=== PATIENT | male | born 1965 | race Caucasian/White ===

== ENCOUNTER 2023-11-20 07:03 | Outpatient (CLI) | payer OTHER, SELFPAY ==
--- OUTSIDE RECORDS SUMMARY | 2023-11-20 07:10 | XMS_ITS | Continuity of Care Document ---
Author Organization [facility] Address [address] [place] [address] Care Team Providers Care Customer Service Technician Name Role Phone Mitch Mason-CTiffany Primary Care Provider Source Comments Patient records contain information from all sites at [facility]. For routine questions regarding patient records, call [phone] during business hours, M-F 8:00 AM - 5:00 PM Central Time. Record requests for emergency care only can be directed to [phone] at any time.[facility] Encounters Date Type Department Care Team Description 10/16/2023 [facility] Only [facility], FreddyA.-C. Diabetes Mellitus Type 2 Without Complication (HCC) 08/24/2023 Refill Department of Family [facility], [facility], in [place], [place] [address] [place] [phone] Mitch Mason PTiffanyA.-C. Med Refill 08/06/2023 Clinical Communication Department of [facility], [facility], in [place], [place] [address] [place] [phone] Mitch Mason P.A.-C. Quality (D5) 08/04/2023 Refill Department of [facility], [facility], in [place], [place] [address] [place] [phone] Mitch Mason P.A.-C. Med Refill 04/23/2023 Orders Only Department of Family [facility], [facility], in [address] [address] Mitch Mason P.A.-C. 04/23/2023 Refill Department of [facility], [facility], in [address] [address] Mitch Mason P.A.-C. Med Refill 04/20/2023 10:50 AM FLOOR MECHANIC - 04/20/2023 11:59 PM FLOOR MECHANIC Hospital Encounter Department of Laboratory Medicine in [address] [address] Mitch Mason P.A.-C. Pain Chest Atypical Discharge Disposition: Home or Self Care 04/20/2023 10:43 AM FLOOR MECHANIC - 04/20/2023 10:49 AM FLOOR MECHANIC Hospital Encounter Department of Radiology in [address] [address] Mitch Mason P.A.-Xochitl Pain Chest Atypical Discharge Disposition: Home or Self Care 04/20/2023 10:30 AM FLOOR MECHANIC Office Visit Department of [facility], [facility], in [address] [address] Mitch Mason P.A.-Sudhakar. Tendonitis Achilles Right (Primary Dx); Body Mass Index 40.0 To 44.9 Adult (HCC); Diabetes Mellitus Type 2 Without Complication (HCC); Pain Chest Atypical 04/20/2023 9:50 AM FLOOR MECHANIC - 04/20/2023 10:42 AM FLOOR MECHANIC Hospital Encounter Department of Laboratory Medicine in [address] [address] Mitch Mason P.A.-CTiffany Diabetes Mellitus Type 2 Without Complication (HCC); Hematuria Discharge Disposition: Home or Self Care 03/13/2023 9:20 AM FLOOR MECHANIC Office Visit Department of Community Internal Medicine in [address] [address] Ericka Hassan P.A.-C. Gout (Primary Dx) 01/05/2023 Clinical Communication Department of Family [facility], [facility], in [address] [address] Mitch Mason P.A.-C. 01/05/2023 12:06 PM CDT - 01/05/2023 11:59 PM CDT Hospital Encounter Department of Laboratory Medicine in [address] [address] Mitch Mason P.A.-C. Diabetes Mellitus Type 2 Without Complication (HCC); Hematuria Discharge Disposition: Home or Self Care 01/05/2023 11:30 AM CDT Office Visit Department of Family Medicine, [facility], in [address] [address] Mitch Mason P.A.-CTiffany Hypertension Essential Primary (Primary Dx); Body Mass Index 40.0 To 44.9 Adult (HCC); Diabetes Mellitus Type 2 Without Complication (HCC); Gastro-Esophageal Reflux Disease With Esophagitis Without Bleeding; Abuse Alcohol; Hematuria 12/29/2022 Refill Department of Family [facility], in [address] [address] Quentin High M.D. Med Refill 12/22/2022 11:02 AM CDT - 12/22/2022 11:59 PM CDT Hospital Encounter Department of Laboratory Medicine in [address] [address] Mitch Mason P.ATiffany-CTiffany Diabetes Mellitus Type 2 Without Complication (HCC); Screening Examination Prostate Cancer Discharge Disposition: Home or Self Care 12/22/2022 11:02 AM CDT - 12/22/2022 11:59 PM CDT Hospital Encounter Department of Laboratory Medicine in [place], [place] [address] [facility] [place] [address] Mitch Mason P.A.-C. Diabetes Mellitus Type 2 Without Complication (HCC); Screening Examination Prostate Cancer Discharge Disposition: Home or Self Care 12/22/2022 Orders Only Department of Family Medicine, [facility], in [place], [place] [address] [facility] [place] [address] Mitch Mason, Hamilton.A.-C. Diabetes Mellitus Type 2 Without Complication (HCC) (Primary Dx); Screening Examination Prostate Cancer 12/03/2022 Refill Department of Family Medicine, [facility], in [place], [place] [address] [facility] [place] [address] Mitch Mason P.ATiffany-C. Med Refill 11/24/2022 [facility] [place], [place] [address] [facility] [place] [address] Mitch Mason P.A.-C. Med Refill 11/24/2022 Clinical Communication Department of Family [facility], [facility], in [place], [place] [address] [facility] [place] [phone] Elsewhere, Pcp Med Refill 11/22/2022 Patient Outreach Department of Family Medicine, [facility], in [place], [place] [address] [place] [phone] Elsewhere, Pcp Diabetes 11/18/2022 Refill Department of Family Medicine, [facility], in [place], [place] [address] [facility] [place] [address] Mitch Mason P.ATiffany-C. Med Refill 11/06/2022 Refill Department of Family Medicine, [facility], in [place], [place] [address] [facility] [place] [address] Mitch Mason P.A.-C. Med Refill 10/20/2022 Clinical Communication Department of [facility], [address] [phone] Tsering Meyers R.N. 10/17/2022 Orders Only [facility] Mason P.A.-C. 10/13/2022 Patient Outreach Department of [facility], [address] [place] [address] Mitch Mason P.A.-C. Diabetes 08/31/2022 Refill Department of [facility], [address] [phone] Mitch Mason P.A.-C. Med Refill 08/31/2022 Clinical Communication Department of [facility], [address] [phone] Tsering Meyers, R.Ryley. Diabetes (D5 - quality) 05/18/2022 Refill Department of [facility], [address] [phone] Mitch Mason P.A.-C. Med Refill 04/01/2022 Refill Department of [facility], [address] [phone] Mitch Mason P.A.-C. Med Refill 02/15/2022 Refill Department of [facility], [address] [phone] Mitch Mason P.A.-C. Med Refill 01/07/2022 Refill Department of [facility], [address] [address] Devonte Larios M.B.B.S., M.D. Med Refill 12/26/2021 Orders Only [facility] P[facility] Mitch Mason P.A.-C. 12/24/2021 Refill Department of Family [facility], [facility], [address] [address] Mitch Mason P.A.-C. Med Refill 08/24/2021 11:00 AM CDT Office Visit Department of [facility], [address] [phone] Mitch Mason P.A.-C. Hypertension Essential Primary (Primary Dx); Body Mass Index 40.0 To 44.9 Adult (HCC); Diabetes Mellitus Type 2 Without Complication (HCC); Gastro-Esophageal Reflux Disease With Esophagitis Without Bleeding; Screening Examination Prostate Cancer 08/23/2021 9:26 AM CDT - 08/23/2021 11:59 PM CDT Hospital Encounter Department of Laboratory Medicine in [address] [address] Mitch Mason P.A.-CTiffany Screening Examination Prostate Cancer; Diabetes Mellitus Type 2 Without Complication (HCC) Discharge Disposition: Home or Self Care 08/23/2021 9:24 AM CDT - 08/23/2021 9:25 AM CDT Hospital Encounter Department of Laboratory Medicine in [address] [address] Mitch Mason P.A.-CTiffany Screening Examination Prostate Cancer; Diabetes Mellitus Type 2 Without Complication (HCC) Discharge Disposition: Home or Self Care 08/17/2021 Orders Only Department of Family Medicine, [facility], in [address] [address] Mitch Mason P.A.-CTiffany Screening Examination Prostate Cancer (Primary Dx); Diabetes Mellitus Type 2 Without Complication (HCC) 2021 Clinical Communication Department of [facility], [address] [phone] Mitch Mason P.A.-C. D5 Quality Improvement 07/12/2021 Orders Only [facility] Mitch Mason P.A.-C. Diabetes Mellitus Type 2 Without Complication (HCC); Monitoring For Therapeutic Drug Therapy 03/07/2021 Orders Only [facility] Mitch Mason P.A.-C. 12/22/2020 Clinical Communication Department of [facility], in [address] [phone] Mitch Mason P.A.-C. Form Review (Work Comp - Aric Oliva) 12/14/2020 Clinical Communication Department of [facility], [address] [phone] Mitch Mason P.A.-C. 11/29/2020 Clinical Communication Department of [facility], in [address] [phone] Mitch Mason P.A.-C. Form Review (Work Comp) 11/25/2020 Clinical Communication Department of Physical Medicine and Rehabilitation in [address] [phone] Hoang Carter D.O. Communication 11/25/2020 2:30 PM CDT Office Visit Department of [facility], in [address] [phone] Mitch Mason P.A.-CTiffany Body Mass Index 40.0 To 44.9 Adult (HCC) (Primary Dx); Diabetes Mellitus Type 2 Without Complication (HCC); Hypertension Essential Primary 10/07/2020 Refill Department of [facility], in [address] [address] Mitch Mason P.A.-C. Med Refill 10/06/2020 Clinical Communication Department of [facility], in [address] [address] Mitch Mason P.A.-Sudhakar. 09/29/2020 Clinical Communication Department of Physical Medicine and Rehabilitation in [address] [address] Hoang Carter D.O. Letter for School/Work 09/28/2020 Clinical Communication Department of Physical Medicine and Rehabilitation in [address] [address] Hoang Carter D.O. Letter regarding limitations at work. 09/27/2020 Clinical Communication Department of Physical Medicine and Rehabilitation in [address] [place] [address] Hoang Carter D.O. 09/23/2020 Clinical Communication Department of [facility], in [address] [address] Mitch Mason P.A.-Sudhakar. 09/15/2020 10:00 AM CDT Office Visit Department of Physical Medicine and Rehabilitation in [address] [address] Hoang Carter D.OTiffany Radiculopathy Lumbosacral (Primary Dx); Pain Low Back; Lumbar Disc Disorder; Spondylosis Lumbar Without Myelopathy 09/09/2020 Refill Department of [facility], in [address] [address] Mitch Mason P.A.-C. Med Refill 08/18/2020 10:30 AM CDT Office Visit Department of Physical Medicine and Rehabilitation in [address] [address] Hoang Carter D.O. Radiculopathy Lumbosacral (Primary Dx); Pain Low Back; Lumbar Disc Disorder; Spondylosis Lumbar Without Myelopathy 08/12/2020 6:47 AM CDT - 08/12/2020 11:59 PM CDT Hospital Encounter Department of Radiology in [place], [place] [address] [place] [address] Hoang Carter D.O. Pain Low Back Discharge Disposition: Home or Self Care 08/11/2020 10:43 AM CDT - 08/11/2020 11:59 PM CDT Hospital Encounter Department of Radiology in [address] [address] Mitch Mason P.A.-CTiffany Pain Back Discharge Disposition: Home or Self Care 08/11/2020 11:45 AM CDT Comprehensive Visit Department of Physical Medicine and Rehabilitation in [address] [address] Hoang Carter D.O. Pain Low Back (Primary Dx); Radiculopathy Lumbar; Spondylosis Lumbar Without Myelopathy 07/28/2020 12:00 PM CDT Office Visit Department of Family Medicine, [facility], in [address] [address] Mitch Mason P.A.-C. Diabetes Mellitus Type 2 Without Complication (HCC) (Primary Dx); Body Mass Index 40.0 To 44.9 Adult (HCC); Hypertension Essential Primary; Gastro-Esophageal Reflux Disease With Esophagitis Without Bleeding; Screening Examination Prostate Cancer; Pain Back 07/22/2020 Refill Department of Family Medicine, [facility], in [address] [address] Mitch Mason P.A.-C. Med Refill 07/22/2020 Clinical Communication Department of [facility], [facility], in [address] [address] Mitch Mason P.A.-C. 07/09/2020 Orders Only [facility] Ozzy Pitts Jr., M.D. 06/30/2020 Clinical Communication Department of [facility], [facility], in [address] [address] Mitch Mason P.A.-C. COVID Inquiry 04/12/2020 Orders Only [facility] Mitch Frost P.A.-C. Monitoring For Therapeutic Drug Therapy; Diabetes Mellitus Type 2 Without Complication (HCC) 03/30/2020 Clinical Communication Department of [facility], in [address] [address] Mitch Mason P.A.-CTiffany D5-Quality Improvement 07/11/2019 9:30 AM CDT Virtual Visit Department of [facility], [address] [address] Mitch Mason P.A.-CTiffany Body Mass Index 40.0 To 44.9 Adult (HCC) (Primary Dx); Hypertension Essential Primary; Diabetes Mellitus Type 2 Without Complication (HCC); Gastroesophageal Reflux Disease With Esophagitis 06/20/2019 7:14 AM CDT - 06/20/2019 11:59 PM CDT Hospital Encounter Department of Laboratory Medicine in [address] [address] Mitch Mason P.A.-CTiffany Diabetes Mellitus Type 2 (HCC); Screening Examination Prostate Cancer Discharge Disposition: Home or Self Care 06/20/2019 7:14 AM CDT - 06/20/2019 11:59 PM CDT Hospital Encounter Department of Laboratory Medicine in [address] [address] Mitch Mason P.A.-CTiffany Diabetes Mellitus Type 2 (HCC); Screening Examination Prostate Cancer Discharge Disposition: Home or Self Care 03/27/2019 Refill Department of [facility], [place], [place] [address] [facility] [address] Mitch Mason P.A.-CTiffany Med Refill; Med Refill 02/26/2019 Clinical Communication Department of General Surgery in [address] [place] [address] Kishore Guadarrama M.D. 02/17/2019 8:15 AM FLOOR MECHANIC Nurse Only Department of [facility], [address] [address] Mitch Mason P.A.-Sudhakar. Elida Gaines, L.P.N. Blood Pressure Check (Blood pressure check- patient states he is feeling better, has been taking his medication as prescribed.) 02/05/2019 Clinical Communication Department of [facility], in [address] [place] [address] Mitch Mason P.ATiffany-CTiffany 02/05/2019 3:30 PM CDT Office Visit Department of Family [facility], [address] [phone] Mitch Mason P.A.-CTiffany Hypertension Essential Primary (Primary Dx); Preoperative Exam; Screening Cancer Colon; Diabetes Mellitus Type 2 (HCC) 01/31/2019 Clinical Communication Department of [facility], [address] [address] Mitch Mason P.A.-CTiffany Rx Prior Authorization (QTY DENIAL OF OMEPRAZOLE 20MG DR OLIVERA) 01/31/2019 Orders Only Pharmacy Prior Auth [phone] Mitch Mason P.A.-C. 01/31/2019 Refill Department of [facility], [facility], [place], [place] [address] [facility] [place] [place] [phone] Mitch Mason P.A.-C. Med Refill 01/27/2019 Clinical Communication Department of [facility], [facility], in [place], [place] [address] [facility] [place] [phone] Mitch Mason P.A.-C. 01/23/2019 3:00 PM CDT Comprehensive Visit Department of Orthopedic Surgery in [place], [place] [address] [address] [address] Luis Mcdonald M.D. Crushing Injury Right Wrist And Hand Initial (Primary Dx); Pain Wrist Right 01/20/2019 Clinical Communication Department of [facility], in [place], [place] [address] [address] Mitch Mason P.A.-C. 01/17/2019 10:56 AM CDT - 01/17/2019 11:59 PM CDT Hospital Encounter Department of Radiology in [address] [place] [address] Mitch Mason P.A.-C. Pain Wrist Right Discharge Disposition: Home or Self Care 01/17/2019 3:00 PM CDT Office Visit Department of [facility], in [place], [place] [address] [facility] [place] [address] Mitch Mason P.A.-C. Pain Wrist Right (Primary Dx); Preoperative Exam; Screening Cancer Colon 01/13/2019 Clinical Communication Department of [facility], in [place], [place] [address] [facility] [place] [address] RoethMitch samson P.A.-C. 12/06/2018 Clinical Communication Department of [facility], [facility], [address] [place] [address] Kishore Guadarrama M.D. Colonoscopy Date 11/29/2018 Clinical Communication Department of [facility], [facility], in [address] [place] [address] Mitch Mason P.A.-C. Colonoscopy 11/27/2018 11:00 AM CDT Office Visit Department of [facility], [address] [place] [address] Mitch Mason P.A.-C. Diabetes Mellitus Type 2 (HCC) (Primary Dx); Hypertension Essential Primary; Screening Cancer Colon; Gastroesophageal Reflux Disease With Esophagitis; Abuse Alcohol; Screening Examination Prostate Cancer 11/14/2018 Clinical Communication Department of [facility], [address] [place] [address] Mitch Mason P.A.-C. 07/26/2018 Clinical Communication Department of [facility], in [address] [address] Mitch Mason P.A.-C. Colonoscopy 06/26/2018 3:34 PM CDT - 06/26/2018 11:59 PM CDT Hospital Encounter Department of Laboratory Medicine in [address] [place] [address] Mitch Mason P.A.-C. Hypertension Essential Primary; Abuse Alcohol; General Medical Examination Adult; Screening Cancer Colon; Iron Deficiency Anemia Screening Exam; Screening Examination Prostate Cancer Discharge Disposition: Home or Self Care 06/26/2018 3:00 PM CDT Office Visit Department of [facility], [address] [address] Mitch Mason P.A.-CTiffany Hypertension Essential Primary (Primary Dx) 06/21/2018 Clinical Communication Department of [facility] in [address] [address] Salas Kelsey C.M.A. 06/12/2018 10:30 AM FLOOR MECHANIC Office Visit Department of Family Medicine, [facility], in [address] [address] Mitch Mason P.A.-C. Cerumen Impacted Bilateral (Primary Dx); Diabetes Mellitus Type 2 (HCC); Body Mass Index 40.0 To 44.9 Adult (HCC); Hypertension Essential Primary; Abuse Alcohol; Gastroesophageal Reflux Disease With Esophagitis; Pain Shoulder Right; General Medical Examination Adult; Screening Cancer Colon; Iron Deficiency Anemia Screening Exam; Screening Examination Prostate Cancer 05/16/2018 8:59 AM FLOOR MECHANIC - 05/16/2018 11:59 PM FLOOR MECHANIC Hospital Encounter Department of Laboratory Medicine in [address] [address] Mitch Mason P.A.-CTiffany Diabetes Mellitus Type 2 Without Complication (HCC) Discharge Disposition: Home or Self Care 05/16/2018 8:59 AM FLOOR MECHANIC - 05/16/2018 11:59 PM FLOOR MECHANIC Hospital Encounter Department of Laboratory Medicine in [address] [address] Mitch Mason P.A.-CTiffany Diabetes Mellitus Type 2 Without Complication (HCC) Discharge Disposition: Home or Self Care 05/03/2018 Clinical Communication Department of Family Medicine, [facility], in [address] [address] Mitch Mason P.A.-Xochitl lab orders 01/23/2018 Orders Only Department of Family Medicine, [facility], in [address] [address] Radha Solis 01/11/2018 Refill Department of Family Medicine, [facility], in [place], [place] [address] [facility] [place] [address] Mitch Mason P.A.-C. Med Refill 08/22/2017 Refill Department of Family Medicine, [facility], in [place], [place] [address] [facility] [place] [address] Mitch Mason P.A.-C. Med Refill 08/10/2017 Refill Department of Family Medicine, [facility], in [place], [place] [address] [facility] [place] [address] Mitch Mason P.A.-C. Med Refill 07/18/2017 Orders Only Department of Family Medicine, [facility], in [address] [place] [address] Mitch Mason P.A.-C. 07/02/2017 Refill Department of Family Medicine, [facility], in [address] [place] [address] Mitch Mason P.A.-CTiffany Med Refill 07/01/2017 Refill Department of Family Medicine, [facility], in [address] [place] [address] Mitch Mason P.A.-C. Med Refill 02/06/2017 Orders Only Department of Family Medicine, [facility], in [address] [place] [address] Mitch Mason P.A.-CTiffany Diabetes Mellitus Type 2 Without Complication (HCC) 01/27/2017 Orders Only Department of Family Medicine, [facility], in [address] [place] [address] Mitch Mason P.A.-CTiffany 01/19/2017 Orders Only Department of Family Medicine, [facility], in [place] [address] [place] [address] Mitch Mason P.A.-C. Diabetes Mellitus Type 2 Without Complication (HCC) 10/16/2016 3:21 PM CDT - 10/16/2016 11:59 PM CDT Hospital Encounter HX [facility] FAMILYMitch Woody P.A.-C. 07/11/2016 9:55 AM CDT - 07/11/2016 11:59 PM CDT Hospital Encounter HX [facility] Mitch Mason P.A.-C. 07/07/2016 11:57 AM CDT - 07/07/2016 11:59 PM CDT Hospital Encounter HX [facility] FAMILYMitch Woody P.A.-C. 07/05/2016 12:50 PM CDT - 07/05/2016 11:59 PM CDT Hospital Encounter HX [facility] Mitch Mason P.A.-C. 06/14/2016 8:07 AM FLOOR MECHANIC - 06/14/2016 11:59 PM FLOOR MECHANIC Hospital Encounter HX [facility] FAMILYMitch Woody P.A.-C. 04/17/2016 [facility] 04/17/2016 2:57 PM FLOOR MECHANIC - 04/17/2016 11:59 PM FLOOR MECHANIC Hospital Encounter HX [facility] Oh Butcher Jr., M.D. 01/07/2016 2:19 PM CDT - 01/07/2016 11:59 PM CDT Hospital Encounter HX [facility] Mitch Mason P.A.-C. 07/23/2015 2:27 PM CDT - 07/23/2015 11:59 PM CDT Hospital Encounter HX [facility] FAMILYMitch Woody P.A.-C. 06/21/2015 8:07 AM CDT - 06/21/2015 11:59 PM CDT Hospital Encounter HX [facility] FAMILYMitch Woody P.A.-C. 06/07/2015 8:30 AM FLOOR MECHANIC - 06/07/2015 11:59 PM FLOOR MECHANIC Hospital Encounter HX [facility] Mitch Mason P.A.-C. 06/07/2015 8:30 AM FLOOR MECHANIC - 06/07/2015 11:59 PM FLOOR MECHANIC Hospital Encounter HX [facility] Mitch Mason P.A.-C. 06/07/2015 8:27 AM FLOOR MECHANIC - 06/07/2015 11:59 PM FLOOR MECHANIC Hospital Encounter HX [facility] Mitch Mason P.A.-C. 12/07/2014 11:39 AM CDT - 12/07/2014 11:59 PM CDT Hospital Encounter HX [facility] FAMILYMitch Woody P.A.-C. 06/29/2014 8:26 AM CDT - 06/29/2014 11:59 PM CDT Hospital Encounter HX [facility] FAMILYMitch Woody P.A.-C. 06/24/2014 8:28 AM CDT - 06/24/2014 11:59 PM CDT Hospital Encounter HX [facility] Mitch Mason P.A.-C. 05/15/2014 Historical [facility] Oh Weber Jr., M.D. 05/15/2014 8:25 AM FLOOR MECHANIC - 05/15/2014 11:59 PM FLOOR MECHANIC Hospital Encounter HX [facility] Oh Butcher Jr., M.D. 04/17/2014 8:39 AM FLOOR MECHANIC - 04/17/2014 11:59 PM FLOOR MECHANIC Hospital Encounter HX [facility] FAMILYMitch Woody P.A.-C. 04/03/2014 8:18 AM FLOOR MECHANIC - 04/03/2014 11:59 PM FLOOR MECHANIC Hospital Encounter HX [facility] ULTRASOUN Mitch Mason P.A.-C. 03/25/2014 1:56 PM FLOOR MECHANIC - 03/25/2014 11:59 PM FLOOR MECHANIC Hospital Encounter HX [facility] FAMILYMitch Woody P.A.-C. 03/21/2014 8:36 AM FLOOR MECHANIC - 03/21/2014 11:59 PM FLOOR MECHANIC Hospital Encounter HX [facility] Mitch Larsen P.A.-C. 03/18/2014 3:15 PM FLOOR MECHANIC - 03/18/2014 11:59 PM FLOOR MECHANIC Hospital Encounter [facility] Mitch Mason P.A.-C. Allergies No known active allergies Medications Medication Sig Dispensed Refills Start Date End Date Status aspirin [address] tablet Take 1 tablet by mouth daily. 12/07/2014 Active blood-glucose meter misc Test as directed for diabetes control. 1 each 10/06/2020 Active blood glucose ctl high,nml,low solution Glucose control solution provides an easy way to ensure accurate blood glucose testing. 1 each 10/06/2020 Active Accu-Chek Guide L1-L2 Ctrl Tory solution See Admin Instructions. Glucose control solution provides an easy way to ensure accurate blood glucose testing. 10/07/2020 Active lancets (Accu-Chek Softclix Lancets) USE 1 TO CHECK GLUCOSE ONCE DAILY 100 each 3 02/16/2022 Active gabapentin (NEURONTIN) 600 mg tablet Take 600 mg by mouth. 11/22/2022 Active tiZANidine (ZANAFLEX) 4 mg tablet Take 4 mg by mouth every 6 (six) hours as needed. 11/22/2022 Active glimepiride (AMARYL) 4 mg tablet Take 1 tablet (4 mg total) by mouth daily. 90 tablet 3 01/05/2023 Active famotidine (PEPCID) 40 mg tablet Take 1 tablet (40 mg total) by mouth 2 (two) times a day. 180 tablet 3 01/05/2023 01/05/2024 Active losartan-hydroCHLOR Othiazide (HYZAAR) 100-25 mg per tablet Take 1 tablet by mouth daily. 90 tablet 3 01/05/2023 Active metFORMIN XR (GLUCOPHAGE-XR) 500 mg 24 hr tablet Take 3 tablets (1,500 mg total) by mouth daily with breakfast. 360 tablet 3 01/05/2023 Active oxyCODONE-acetamino phen (PERCOCET) 5-325 mg per tablet Take 1 tablet by mouth every 6 (six) hours as needed. 03/12/2023 Active naproxen (NAPROSYN) 375 mg tablet Take 1 tablet (375 mg total) by mouth every 12 (twelve) hours as needed for pain. 60 tablet 3 04/20/2023 04/19/2024 Active tirzepatide (Mounjaro) 5 mg/0.5 mL pen injector injection Inject 0.5 mL (5 mg total) under the skin every 7 (seven) days. 6 mL 3 04/23/2023 04/22/2024 Active Accu-Chek Guide test strips USE STRIP TO CHECK GLUCOSE ONCE DAILY 100 each 3 08/06/2023 Active simvastatin (ZOCOR) 20 mg tablet take 1 tablet by mouth at bedtime 90 tablet 08/27/2023 Active Active Problems Problem Noted Date Diagnosed Date Gastro-Esophageal Reflux Dis ease With Esophagitis Without Bleeding 06/12/2018 Body Mass Index 40.0 To 44.9 Adult 06/14/2016 Overview (08/29/2016): Body mass index (BMI) 40.0-44.9, adult Rule activated problem due to BMI 40-44 posted on 06/14 at 08:19 FLOOR MECHANIC. Diabetes Mellitus Type 2 Without Complication Overview (08/29/2016): Diabetes Mellitus Type 2 Abuse Alcohol 03/25/2014 Hypertension Essential Primary 03/18/2014 Overview (08/29/2016): Hypertension (HTN) NOS Resolved Problems Problem Noted Date Diagnosed Date Resolved Date Gastroesophageal Reflux Disease NOS 03/18/2014 06/12/2018 Immunizations Name Administration Dates Next Due Influenza, Unspecified 08/24/2021(Deferred: Paige ent decision) PCV20 08/24/2021 RZV (SHINGRIX) 08/24/2021 SARS-COV-2 (COVID-19) - PFIZ ER TS(Discontinued)(12 years or older) 08/24/2021 Tdap 06/21/2015 Family History Medical History Relation Name Comments Prostate cancer Father Diabetes Mother Hypertension Mother Relation Name Status Comments Father Mother Social History Smoking Status as of 11/20/2023 Tobacco Use Types Packs/Day Years Used Date Smoking Tobacco: Never Assessed Social Connection and Isolat ion Panel [NHANES] Answer Date Recorded Frequency of Communication w ith Friends and Family More than three times a week 01/23/2019 Frequency of Social Gatherin gs with Friends and Family Once a week 01/23/2019 Attends Cheondoism Services Never 01/23 Active Member of Clubs or Organizations No 01/23/2019 Attends Club or Organization Meetings Never 01/23/2019 Marital Status 01/23/2019 AUDIT-C Answer Date Recorded Frequency of Alcohol Consumption Monthly or less 01/23/2019 Average Number of Drinks 7 to 9 019 Frequency of Binge Drinking Monthly 01/07 Overall Financial Resource Strain (CARDIA) Answe r Date Recorded Difficulty of Paying Living Expenses Somewhat lopez [address] 01/23/2019 PHQ-2 Answer Date Recorded PHQ-2 Score 0 08/24/2021 [facility] - Occupational Stress Questionnaire Answer Date Recorded Feeling of Stress To some extent 01/23/2019 Exercise Vital Sign Answer Date Recorde d Days of Exercise per Week 3 days 2018 Minutes of Exercise per Session 20 min 01/23/2019 Hunger Vital Sign Answer Date Recorded Worried About Running Out of Food in the Last Ye ar Often true 01/23/2019 Ran Out of Food in the Last Year Sometimes true 01/23/2019 PRAPARE - Transportation Answer Date Re corded Lack of Transportation (Medical) No 01/23/2019 Lack of Transportation (Non-Medical) No 01/23/2019 Nutrition Answer Date Recorded Nutrition: EVOO Fat Source Unknown 06/08 Nutrition: Servings of Fruits/Vegetables per Day Not on file 06/08/2020 Dental Answer Date Recorded Dental: Regular Dentist Unknown 06/09/19 21 Education Answer Date Recorded What is the highest level of school you have completed or the highest degree you have received? 12th grade 01/23/2019 Sex and Gender Information Value Date Recorded Sex Assigned at Not on file Gender Identity Not on file Sexual Orientation Not on file Last Filed Vital Signs Vital Sign Reading Time Taken Comments Blood Pressure 124/82 04/20/2023 10:18 AM FLOOR MECHANIC av erage Pulse 78 04/20/2023 10:18 AM FLOOR MECHANIC Temperature 36 ??C (96.8 ??F) 04/20/2023 10:18 AM FLOOR MECHANIC Respiratory Rate 16 04/20/2023 10:18 AM FLOOR MECHANIC Oxygen Saturation 97% 02/05/2019 3:27 PM CDT Inhaled Oxygen Concentration - - Weight 143 kg (314 lb 13.1 oz) 04/20/2023 10:18 AM FLOOR MECHANIC Height 184 cm (6' 0.44) 04/20/2023 10:18 AM FLOOR MECHANIC Body Mass Index 42.18 04/20/2023 10:18 AM FLOOR MECHANIC Plan of Treatment Not on file Procedures Procedure Name Priority Date/Time Associated Diagnosis Comments ECG Routine 04/20/2023 10:57 AM FLOOR MECHANIC Pain Chest Atypical DX CHEST AP OR PA AND LATERAL 2 VIEWS RAD - Routine (most inpatients and all outpatients) 04/20/2023 10:51 AM FLOOR MECHANIC Pain Chest Atypical HEMOGLOBIN A1C, B Routine 04/20/2023 10:05 AM FLOOR MECHANIC Diabetes Mellitus Type 2 Without Complication (HCC) Hematuria URINALYSIS WITH MICROSCOPIC IF INDICATED, U Routine 01/05/2023 12:10 PM CDT Diabetes Mellitus Type 2 Without Complication (HCC) Hematuria COMPREHENSIVE METABOLIC PANEL, S/P Routine 12/22/2022 11:08 AM CDT Diabetes Mellitus Type 2 Without Complication (HCC) Screening Examination Prostate Cancer HEMOGLOBIN A1C, B Routine 12/22/2022 11:08 AM CDT Diabetes Mellitus Type 2 Without Complication (HCC) Screening Examination Prostate Cancer PROSTATE-SPECIFIC AG (PSA) DIAGNOSTIC, S Routine 12/22/2022 11:08 AM CDT Diabetes Mellitus Type 2 Without Complication (HCC) Screening Examination Prostate Cancer LIPID PANEL, S Routine 12/22/2022 11:08 AM CDT Diabetes Mellitus Type 2 Without Complication (HCC) Screening Examination Prostate Cancer ALBUMIN, RANDOM, U Routine 12/22/2022 11:05 AM CDT Diabetes Mellitus Type 2 Without Complication (HCC) Screening Examination Prostate Cancer COMPREHENSIVE METABOLIC PANEL, S/P Routine 08/23/2021 9:56 AM CDT Screening Examination Prostate Cancer Diabetes Mellitus Type 2 Without Complication (HCC) LIPID PANEL, S Routine 08/23/2021 9:56 AM CDT Screening Examination Prostate Cancer Diabetes Mellitus Type 2 Without Complication (HCC) HEMOGLOBIN A1C, B Routine 08/23/2021 9:5 6 AM CDT Screening Examination Prostate Cancer Diabetes Mellitus Type 2 Without Complication (HCC) PROSTATE-SPECIFIC AG (PSA) DIAGNOSTIC, S Routine 08/23/2021 9:55 AM CDT Screening Examination Prostate Cancer Diabetes Mellitus Type 2 Without Complication (HCC) ALBUMIN, RANDOM, U Routine 08/23/2021 9: 53 AM CDT Screening Examination Prostate Cancer Diabetes Mellitus Type 2 Without Complication (HCC) MR LUMBAR SPINE WITHOUT IV CONTRAST RAD - Routine (most inpatients and all outpatients) 08/12/2020 7:51 AM CDT Pain Low Back DX LUMBAR SPINE 2-3 VIEWS RAD - Routine (most inpatients and all outpatients) 08/11/2020 11:17 AM CDT Pain Back ALBUMIN, RANDOM, U Routine 07/28/2020 12:57 PM CDT Diabetes Mellitus Type 2 Without Complication (HCC) Screening Examination Prostate Cancer PROSTATE-SPECIFIC AG (PSA) DIAGNOSTIC, S Routine 07/28/2020 12:56 PM CDT Diabetes Mellitus Type 2 Without Complication (HCC) Screening Examination Prostate Cancer LIPID PANEL, S Routine 07/28/2020 12:56 PM CDT Diabetes Mellitus Type 2 Without Complication (HCC) Screening Examination Prostate Cancer HEMOGLOBIN A1C, B Routine 07/28/2020 12:56 PM CDT Diabetes Mellitus Type 2 Without Complication (HCC) Screening Examination Prostate Cancer COMPREHENSIVE METABOLIC PANEL, S/P Routine 07/28/2020 12:56 PM CDT Diabetes Mellitus Type 2 Without Complication (HCC) Screening Examination Prostate Cancer PROSTATE-SPECIFIC AG (PSA) DIAGNOSTIC, S Routine 06/20/2019 7:32 AM CDT Diabetes Mellitus Type 2 (HCC) Screening Examination Prostate Cancer LIPID PANEL, S Routine 06/20/2019 7:32 AM CDT Diabetes Mellitus Type 2 (HCC) Screening Examination Prostate Cancer COMPREHENSIVE METABOLIC PANEL, S/P Routine 06/20/2019 7:32 AM CDT Diabetes Mellitus Type 2 (HCC) Screening Examination Prostate Cancer HEMOGLOBIN A1C, B Routine 06/20/2019 7:3 2 AM CDT Diabetes Mellitus Type 2 (HCC) Screening Examination Prostate Cancer ALBUMIN, RANDOM, U Routine 06/20/2019 7: 30 AM CDT Diabetes Mellitus Type 2 (HCC) Screening Examination Prostate Cancer OUTSIDE PHOTO Routine 02/19/2019 12:00 PM FLOOR MECHANIC DX WRIST RIGHT 2 VIEWS RAD - Routine (most inpatients and all outpatients) 01/17/2019 11:32 AM CDT Pain Wrist Right HEMOGLOBIN A1C, B Routine 11/27/2018 11:28 AM CDT Diabetes Mellitus Type 2 (HCC) PROSTATE-SPECIFIC AG (PSA) DIAGNOSTIC, S Routine 06/26/2018 3:48 PM CDT Screening Examination Prostate Cancer CBC WITH DIFFERENTIAL, B Routine 06/26/2018 3:48 PM CDT Hypertension Essential Primary Abuse Alcohol General Medical Examination Adult Screening Cancer Colon Iron Deficiency Anemia Screening Exam COMPREHENSIVE METABOLIC PANEL, S/P Routine 06/26/2018 3:48 PM CDT Hypertension Essential Primary Abuse Alcohol General Medical Examination Adult Screening Cancer Colon Iron Deficiency Anemia Screening Exam OH RMVL IMPACT CERUMEN IRRIG UNILAT Routine 06/12/2018 10:30 AM FLOOR MECHANIC Cerumen Impacted Bilateral ALBUMIN, RANDOM, U Routine 05/16/2018 9: 11 AM FLOOR MECHANIC Diabetes Mellitus Type 2 Without Complication (HCC) HEMOGLOBIN A1C, B Routine 05/16/2018 9:1 0 AM FLOOR MECHANIC Diabetes Mellitus Type 2 Without Complication (HCC) BASIC METABOLIC PANEL, S/P Routine 05/16/2018 9:10 AM FLOOR MECHANIC Diabetes Mellitus Type 2 Without Complication (HCC) LIPID PANEL, S Routine 05/16/2018 9:10 AM FLOOR MECHANIC Diabetes Mellitus Type 2 Without Complication (HCC) HEMOGLOBIN A1C, B Routine 07/11/2016 10:09 AM CDT LIPID PANEL, S Routine 07/11/2016 10:09 AM CDT COMPREHENSIVE METABOLIC PANEL, S/P Routine 07/05/2016 12:56 PM CDT ALBUMIN, RANDOM, U Routine 01/07/2016 2: 31 PM CDT HEMOGLOBIN A1C, B Routine 01/07/2016 2:2 8 PM CDT HEPATIC FUNCTION PANEL, S Routine 06/07/2015 8:39 AM FLOOR MECHANIC HEMOGLOBIN A1C, B Routine 06/07/2015 8:3 9 AM FLOOR MECHANIC LIPID PANEL, S Routine 06/07/2015 8:39 AM FLOOR MECHANIC COMPREHENSIVE METABOLIC PANEL, S/P Routine 06/07/2015 8:39 AM FLOOR MECHANIC CHRONIC VIRAL HEPATITIS PROFILE Routine 06/07/2015 8:39 AM FLOOR MECHANIC ALBUMIN, RANDOM, U Routine 12/07/2014 1: 10 PM CDT URIC ACID, S/P Routine 12/07/2014 1:05 PM CDT HEMOGLOBIN A1C, B Routine 12/07/2014 1:0 5 PM CDT COMPREHENSIVE METABOLIC PANEL, S/P Routine 12/07/2014 1:05 PM CDT HEPATIC FUNCTION PANEL, S Routine 06/24/2014 8:41 AM CDT LIPID PANEL, S Routine 06/24/2014 8:41 AM CDT HEMOGLOBIN A1C, B Routine 06/24/2014 8:4 1 AM CDT US ABDOMEN COMPLETE Routine 04/03/2014 8 :32 AM FLOOR MECHANIC ALBUMIN, RANDOM, U Routine 03/25/2014 3: 08 PM FLOOR MECHANIC HEMOGLOBIN A1C, B Routine 03/21/2014 9:4 9 AM FLOOR MECHANIC PROSTATE-SPECIFIC AG (PSA) SCRN, S Routine 03/21/2014 9:49 AM FLOOR MECHANIC COMPREHENSIVE METABOLIC PANEL, S/P Routine 03/21/2014 9:49 AM FLOOR MECHANIC LIPID PANEL, S Routine 03/21/2014 9:49 AM FLOOR MECHANIC THYROID FUNCTION CASCADE, S Routine 03/21/2014 9:49 AM FLOOR MECHANIC Results * ECG 12 Lead (04/20/2023 10:57 AM FLOOR MECHANIC) Ventricular Rate ECG/Min 77 BPM MUSE OH Interval 154 ms MUSE QRSD Interval 146 ms MUSE QT Interval 394 ms MUSE QTC Interval 445 ms MUSE P [place] 42 degrees MUSE R [place] 28 degrees MUSE T Wave [place] 17 degrees MUSE 04/20/2023 10:5 7 AM FLOOR MECHANIC 04/20/2023 10:58 AM FLOOR MECHANIC Impressions MUSE - 04/20/2023 10:58 AM FLOOR MECHANIC Normal sinus rhythm Right bundle branch block with secondary ST-T abnormalities No previous ECGs available Reviewed by FRANCES Wilson Narrative Procedure Note Osmany Flores M.D., Ph.D. - 04/20/2023 IMPRESSION: Normal sinus rhythm Right bundle branch block with secondary ST-T abnormalities No previous ECGs available Reviewed by FRANCES Wilson Mitch Mason P.A.-C. ECG ORDERABLES MUSE NA * DX Chest AP or PA and Lateral 2 Views (04/20/2023 10:51 AM FLOOR MECHANIC) Anatomical Region Laterality Modality Chest, Thoracic RST LOS, Tho racic ARZ LOS, Thoracic FLA LOS N/A Digital Radiography Impressions 04/20/2023 10:56 AM FLOOR MECHANIC No evidence of acute cardiopulmonary abnormality. No focal pulmonary consolidation or pleural effusion. Normal heart size. No pneumothorax. Spondylosis. Narrative 04/20/2023 10:56 AM FLOOR MECHANIC EXAM: DX CHEST AP OR PA AND LATERAL 2 VIEWS Procedure Note Lino Mejia M.D. - 04/20/2023 EXAM: DX CHEST AP OR PA AND LATERAL 2 VIEWS IMPRESSION: No evidence of acute cardiopulmonary abnormality. No focal pulmonaryconsolidation or pleural effusion. Normal heart size. No pneumothorax.Spondylosis. Mitch Mason P.A.-C. IMG DIAGNOSTIC IMAGING PROCEDURES * (ABNORMAL) Hemoglobin A1c (04/20/2023 10:05 AM FLOOR MECHANIC) Only the most recent of13 resultswithin the time period is included. Hemoglobin A1c, B 8.1(H) 4.2 - 5.6 % 04/20/2023 12:13 PM FLOOR MECHANIC OWAT Comment: Hemoglobin A1c values greater than or equal to 6.5 percent are diagnostic for diabetes mellitus. ??Diagnosis should be confirmed by repeat testing. ??In diabetic patients, HbA1c goals should be discussed with healthcare provider. Blood (Blood, Venous) 04/20/2023 10:05 AM FLOOR MECHANIC 04/20/2023 11:06 AM FLOOR MECHANIC Mitch Mason P.A.-C. LAB BLOOD ADD- ON [facility] [address] [place] [address], [place] OWAT [facility] [place] [address] [place] [address] * (ABNORMAL) Urinalysis with Microscopic if Indicated (01/05/2023 12:10 PM CDT) Source Urine, Urine, Midstream 01/05/2023 12:37 PM CDT FB60 Clarity Clear Clear 01/05/2023 12:40 PM CDT FB60 Color Yellow 01/05/2023 12:40 PM CDT FB60 Comment: ----REFERENCE VALUE---- Colorless Yellow Clari Blood Negative Negative 01/05/2023 12:40 PM CDT FB60 Nitrite Negative Negative 01/05/2023 12:40 PM CDT FB60 Leukocyte Esterase Negative Negative 01/05/2023 12:40 PM CDT FB60 Protein Negative mg/dL 01/05/2023 12:40 PM CDT FB60 Comment: ----REFERENCE VALUE---- Negative Trace Glucose 500(A) Negative mg/dL 01/05/2023 12:40 PM CDT FB60 Ketones, QI(U) Negative Negative mg/dL 01/05/2023 12:40 PM CDT FB60 Bilirubin Negative Negative 01/05/2023 12:40 PM CDT FB60 pH 5.5 5.0 - 8.0 01/05/2023 12:40 PM CDT FB60 Specific [place] 1.025 1.001 - 1.035 01/05/2023 12:40 PM CDT FB60 Urobilinogen 1.0 0.2 - 1.0 mg/dL 01/05/2023 12:40 PM CDT FB60 Urine (Urine, Midstream) 01/05/2023 12:10 PM CDT 01/05/2023 12:37 PM CDT Mitch Mason P.A.-C. LAB URINE VLADISLAV FRE[facility] Organization Address City/State/ZIP Co de Phone Number [facility] [address] [place] [address], [facility] FB60 [facility] [place] [address] [place] [address] * (ABNORMAL) Lipid Panel (12/22/2022 11:08 AM CDT) Only the most recent of9 resultswithin the time period is included. Triglycerides 320(H) mg/dL 12/22/2022 2:43 PM CDT OWAT Comment: ----REFERENCE VALUE---- Normal: <150 mg/dL Borderline High: 150-199 mg/dL High: 200-499 mg/dL Very High: > or =500 mg/dL Cholesterol, Total 146 mg/dL 2022 2:43 PM CDT OWAT Comment: ----REFERENCE VALUE---- Desirable: < 200 mg/dL Borderline High: 200 - 239 mg/dL High: > or = 240 mg/dL Cholesterol, LDL, Calculated 64 mg/dL 12/22/2022 2:43 PM CDT OWAT Comment: ----REFERENCE VALUE---- Desirable: <100 mg/dL Above Desirable: 100-129 mg/dL Borderline High: 130-159 mg/dL High: 160-189 mg/dL Very High: >=190 mg/dL ----ADDITIONAL INFORMATION---- LDL cholesterol calculated using the Briones/NIH equation. Cholesterol, HDL 32(L) >=40 mg/dL 12/23/19 2:43 PM CDT OWAT Cholesterol, Non-HDL, Calculated 114 mg/dL 12/22/2022 2:43 PM CDT OWAT Comment: ----REFERENCE VALUE---- Desirable: <130 mg/dL Above Desirable: 130-159 mg/dL Borderline High: 160-189 mg/dL High: 190-219 mg/dL Very High: > or =220 mg/dL Fasting (8 HR or more) No 12/22/2022 1:44 PM CDT OWAT Blood (Blood, Venous) 12/22/2022 11:08 AM CDT 12/22/2022 1:44 PM CDT Mitch Mason P.A.-C. LAB BLOOD ADD- ON [facility] [address] [place] [address], [place] OW[facility] [place] [address] [place] [address] * PSA (Prostate-Specific Antigen), Diagnostic (12/22/2022 11:08 AM CDT) Only the most recent of5 resultswithin the time period is included. Pathologist [facility] [place] Prostate-Specific Ag 1.2 <=3.5 ng/mL 12/22/2022 2:39 PM CDT OWAT Comment: ----ADDITIONAL INFORMATION---- The testing method is an electrochemiluminescence assay manufactured by [employer] and performed on the Modular or Jody system. Values obtained with different assay methods or kits may be different and cannot be used interchangeably. Test results cannot be interpreted as absolute evidence for the presence or absence of malignant disease. Blood (Blood, Venous) 12/22/2022 11:08 AM CDT 12/22/2022 1:45 PM CDT Mitch Mason P.A.-C. LAB BLOOD ADD- ON [facility] [address] [place] [address], [facility] OWAT [facility] [place] [address], [place] [address] * (ABNORMAL) Comprehensive Metabolic Panel (12/22/2022 11:08 AM CDT) Only the most recent of9 resultswithin the time period is included. Pathologist [facility] [place] Potassium, P 4.1 3.6 - 5.2 mmol/L 12/22/2022 2:43 PM CDT OWAT Sodium, P 136 135 - 145 mmol/L 12/22/2022 2:43 PM CDT OWAT Chloride, P 101 98 - 107 mmol/L 12/22/2022 2:43 PM CDT OWAT Bicarbonate, P 22 22 - 29 mmol/L 12/22/2022 2:43 PM CDT OWAT Anion Gap, P 13 7 - 15 12/22/2022 2:43 PM CDT OWAT BUN (Blood Urea Nitrogen), P 20 8 - 24 mg/dL 12/22/2022 2:43 PM CDT OWAT Creatinine 1.40(H) 0.74 - 1.35 mg/dL 12/22/2022 2:43 PM CDT OWAT Estimated GFR (eGFR) 59(L) >=60 mL/min/BS A 12/22/2022 2:43 PM CDT OWAT Comment: Estimated GFR calculated using the 2020 CKD_EPI creatinine equation. Calcium, Total, P 9.3 8.6 - 10.0 mg/dL 12/22/2022 2:43 PM CDT OWAT Glucose, P 206(H) 70 - 140 mg/dL 12/22/2022 2:43 PM CDT OWAT Protein, Total, P 7.4 6.3 - 7.9 g/dL 12/22/2022 2:43 PM CDT OWAT Albumin, P 4.3 3.5 - 5.0 g/dL 12/22/2022 2:43 PM CDT OWAT Aspartate Aminotransferase (AST), P 46 8 - 48 U/L 12/22/2022 2:43 PM CDT OWAT Alkaline Phosphatase, P 114 40 - 129 U/L 12/22/2022 2:43 PM CDT OWAT Alanine Aminotransferase (ALT), P 62(H) 7 - 55 U/L 12/22/2022 2:43 PM CDT OWAT Bilirubin, Total, P 0.4 <=1.2 mg/dL 12/22/2022 2:43 PM CDT OWAT Blood (Blood, Venous) 12/22/2022 11:08 AM CDT 12/22/2022 1:44 PM CDT Mitch Mason P.A.-C. LAB BLOOD ADD- ON [facility] [address] [place] [address], [facility] OWAT [facility] [place] [address] [place] [address] * Albumin, Random, Urine (12/22/2022 11:05 AM CDT) Only the most recent of8 resultswithin the time period is included. Microalbumin <12.0 mg/L 12/22/2022 2:35 PM CDT OWAT Comment:If clinically indica luis, contact the lab for additional testing. Creatinine 150 mg/dL 12/22/2022 2:35 PM CDT OWAT Albumin/Creatinine Ratio <8 <17 mg/g 12/22/2022 2:35 PM CDT OWAT Comment: This ratio may not correspond with the reference range because one or both of the values used to calculate the ratio was above or below the quantification limits. Urine (Urine, Voided) 12/22/2022 11:05 AM CDT 12/22/2022 1:42 PM CDT Mitch Mason P.A.-C. LAB URINE LUZE TNAI [facility] [address] [place] [address], [facility] OWAT [facility] [place] [address] [place] [address] * MR Lumbar Spine without IV Contrast (08/12/2020 7:51 AM CDT) Anatomical Region Laterality Modality Lumbar Spine, Neuroradiology RST LOS, Neuroradiology ARZ LOS, Neuroradiology FLA LOS N/A Magnetic Resonance 08/12/2020 8:35 AM CDT Impressions 08/12/2020 8:41 AM CDT 1. ??Lumbar spondylosis. 2. ??Lower lumbar facet degeneration. 3. ??At L5-S1, small right central disc protrusion and annular fissure contact but do not impinge the traversing right S1 nerve root. 4. ??No neural impingement. Narrative 08/12/2020 8:41 AM CDT EXAM: ??MR LUMBAR SPINE WITHOUT IV CONTRAST COMPARISON: ??Radiographs 08/11/20 FINDINGS: There are 5 lumbar-type vertebra. There is multilevel small disc endplate spurring. Multilevel facet hypertrophy/degeneration, most advanced at bilateral L4-5 and bilateral L5-S1. Additional level by level change is detailed below: T12-L1: No stenosis. L1-2: ??No stenosis. L2-3: ??No stenosis. L3-4: ??No stenosis. L4-5: ??Mild generalized disc bulge. Advanced bilateral facet hypertrophy/degeneration. Mild bilateral neural foraminal stenoses. L5-S1: Disc desiccation. Small right central disc protrusion and annular fissure contact but do not impinge the traversing right S1 nerve root in the lateral recess (series 3 image 8). No central canal stenosis. Advanced bilateral facet hypertrophy/degeneration. Mild bilateral neural foraminal stenoses. No levels of neural impingement or central canal stenosis. Alignment: ??Normal Bone Marrow: ??Normal Conus: ??Normal termination Extra-spinal Findings: ??Bilateral small renal cysts. Procedure Note Luis Adan M.D. - 08/12/2020 EXAM: MR LUMBAR SPINE WITHOUT IV CONTRAST COMPARISON: Radiographs 08/11/20 FINDINGS: There are 5 lumbar-type vertebra. There is multilevel smalldisc endplate spurring. Multilevel facet hypertrophy/degeneration, mostadvanced at bilateral L4-5 and bilateral L5-S1. Additional level by level change isdetailed below: T12-L1: No stenosis. L1-2: No stenosis. L2-3: No stenosis. L3-4: No stenosis. L4-5: Mild generalized disc bulge. Advanced bilateral facet hypertrophy/degeneration. Mild bilateral neural foraminal stenoses. L5-S1: Disc desiccation. Small right central disc protrusion and annularfissure contact but do not impinge the traversing right S1 nerve root in thelateral recess (series 3 image 8). No central canal stenosis. Advanced bilateralfacet hypertrophy/degeneration. Mild bilateral neural foraminal stenoses. No levels of neural impingement or central canal stenosis. Alignment: Normal Bone Marrow: Normal Conus: Normal termination Extra-spinal Findings: Bilateral small renal cysts. IMPRESSION: 1. Lumbar spondylosis. 2. Lower lumbar facet degeneration. 3. At L5-S1, small right central disc protrusion and annular fissurecontact but do not impinge the traversing right S1 nerve root. 4. No neural impingement. Hoang RBADEN MRI PROCEDURES * DX Lumbar Spine 2-3 Views (08/11/2020 11:17 AM CDT) Anatomical Region Laterality Modality Lumbar Spine, Musculoskeleta l RST LOS, Neuroradiology ARZ LOS, Muskuloskeletal FLA LOS N/A Digital Radiography 08/11/2020 11:2 1 AM CDT Impressions 08/11/2020 11:21 AM CDT Minimal retrolisthesis of L2 on L3. Mild multilevel disc space narrowing. Moderate facet arthropathy at the lumbosacral junction. Mild degenerative change at the sacroiliac joints. Presumed calcified 5 mm stone lower pole left kidney. Narrative 08/11/2020 11:21 AM CDT EXAM: DX LUMBAR SPINE 2-3 VIEWS Procedure Note Gabino Rivers M.D. - 08/11/2020 EXAM: DX LUMBAR SPINE 2-3 VIEWS IMPRESSION: Minimal retrolisthesis of L2 on L3. Mild multilevel disc space narrowing. Moderate facet arthropathy at the lumbosacral junction. Mild degenerative change at the sacroiliac joints. Presumed calcified 5 mmstone lower pole left kidney. Mitch Mason P.A.-C. IMG DIAGNOSTIC IMAGING PROCEDURES * Unspecified-Outside Photo (02/19/2019 12:00 PM FLOOR MECHANIC) Narrative IIMS - 02/27/2019 6:40 AM FLOOR MECHANIC This order has been created and auto-finalized to support the import of outside images. If available, original interpretation can be found on the Media Tab in Chart Review, in Document Viewer, or as an image in QREADS. If a re-interpretation or overread is required please follow defined workflow. ?? Provider Not In System IMG NON RAD IMAGI NG PROCEDURES IIMS NA * DX Wrist Right 2 Views (01/17/2019 11:32 AM CDT) Anatomical Region Laterality Modality Upper Extremity, Wrist, Musc uloskeletal RST LOS, Musculoskeletal ARZ LOS, Muskuloskeletal FLA LOS Right Digit al Radiography 01/17/2019 11:5 7 AM CDT Impressions 01/17/2019 11:59 AM CDT Impression: Subacute/probable chronic appearing osteocartilaginous loose bodies (likely posttraumatic); located along the ulnar-sided margin of the right ulnar carpal joint line, may be related to subacute/remote trauma. Could result in possible adjacent soft tissue injury and/or tendinopathy. Moderately prominent soft tissue swelling along the peripheral margin of the right distal forearm/wrist, more pronounced dorsally and ulnar sided aspect of the distal right forearm and wrist. Narrative 01/17/2019 11:59 AM CDT EXAM: DX WRIST RIGHT 2 VIEWS COMPARISON: None Procedure Note Hoang Dickinson M.D. - 01/17/2019 EXAM: DX WRIST RIGHT 2 VIEWS COMPARISON: None IMPRESSION: Impression: Subacute/probable chronic appearing osteocartilaginous loosebodies (likely posttraumatic); located along the ulnar-sided margin of the rightulnar carpal joint line, may be related to subacute/remote trauma. Could resultin possible adjacent soft tissue injury and/or tendinopathy. Moderately prominent soft tissue swelling along the peripheral margin ofthe right distal forearm/wrist, more pronounced dorsally and ulnar sidedaspect of the distal right forearm and wrist. Mitch Mason P.A.-C. IMG DIAGNOSTIC IMAGING PROCEDURES * (ABNORMAL) CBC with Differential, Blood (06/26/2018 3:48 PM CDT) Hemoglobin 16.0 13.2 - 16.6 g/dL 06/26/2018 3:57 PM CDT [facility] Hematocrit 46.2 38.3 - 48.6 % 06/26/2018 3:57 PM CDT [facility] Erythrocytes 5.26 4.35 - 5.65 x10(12)/L 06/26/2018 3:57 PM CDT [facility] MCV 87.8 78.2 - 97.9 fL 06/26/2018 3:57 PM CDT [facility] RBC Distrib Width 13.0 11.8 - 14.5 % 06/26/2018 3:57 PM CDT [facility] Platelet Count 265 135 - 317 x10(9)/L 06/26/2018 3:57 PM CDT [facility] Leukocytes 9.4 3.4 - 9.6 x10(9)/L 06/26/2018 3:57 PM CDT [facility] Neutrophils 3.90 1.56 - 6.45 x10(9)/L 06/26/2018 3:57 PM CDT [facility] Lymphocytes 4.25(H) 0.95 - 3.07 x10(9)/L 06/26/2018 3:57 PM CDT [facility] Monocytes 0.98(H) 0.26 - 0.81 x10(9)/L 06/26/2018 3:57 PM CDT [facility] Eosinophils 0.20 0.03 - 0.48 x10(9)/L 06/26/2018 3:57 PM CDT [facility] Basophils 0.03 0.01 - 0.08 x10(9)/L 06/26/2018 3:57 PM CDT [facility] Blood (Blood, Venous) 06/26/2018 3:48 PM CDT 06/26/2018 3:48 PM CDT Mitch Mason P.A.-C. LAB BLOOD ADD- ON Performing Organization Address City/State/[facility] Co de Phone Number [facility] [address] * [place] RMVL IMPACT CERUMEN IRRIG UNILAT (06/12/2018 10:30 AM FLOOR MECHANIC) Narrative MMODAL - 06/12/2018 10:30 AM FLOOR MECHANIC Mike Ellison, R.N. ? 06/12/2018 12:38 PM Ear cerumen removal Date/Time: 06/12/2018 12:36 PM Performed by: MIKE ELLISON Authorized by: TRACY URBAN Pre-procedural details: ??Indication: cerumen impaction ?? Procedure details: ??Location: ??Left ear and right ear ??Procedure type: irrigation ?Microscope used: no ?? Post-procedure details: ??Inspection: ??Complete impaction removal and TM intact ??Hearing quality: ??Improved ??Procedure completed successfully: yes ?Complications: no immediate complications ?? Tracy Urban APRN, C.N.P., R.N. PROCED URE/MINOR SURGICAL ORDERABLES MMODAL NA * (ABNORMAL) BMP (Basic Metabolic Panel) (05/16/2018 9:10 AM FLOOR MECHANIC) Potassium, S 4.7 3.6 - 5.2 mmol/L 05/16/2018 11:16 AM [facility] Sodium, S 140 135 - 145 mmol/L 05/16/2018 11:16 AM [facility] Chloride, S 103 98 - 107 mmol/L 05/16/2018 11:16 AM [facility] Bicarbonate, S 29 22 - 29 mmol/L 05/16/2018 11:16 AM [facility] Anion Gap 8 7 - 15 05/16/2018 11:16 AM [facility] BUN (Blood Urea Nitrogen), S 14 8 - 24 mg/dL 05/16/2018 11:16 AM [facility] Creatinine 1.05 0.74 - 1.35 mg/dL 05/16/2018 11:16 AM [facility] eGFR-Non Black/ 82 >=60 mL/min/BSA 05/16/2018 11:16 AM [facility] Comment: ----ADDITIONAL INFORMATION---- Estimated GFR calculated using the 2009 CKD_EPI creatinine equation. eGFR-Black/Afri can Portuguese >90 >=60 mL/min/BSA 05/16/2018 11:16 AM [facility] Comment: ----ADDITIONAL INFORMATION---- Estimated GFR calculated using the 2009 CKD_EPI creatinine equation. Calcium, Total, S 9.1 8.6 - 10.0 mg/dL 05/16/2018 11:16 AM [facility] Glucose, S 142(H) 70 - 140 mg/dL 05/16/2018 11:16 AM FLOOR MECHANIC [facility] Blood 05/16/2018 9:10 AM FLOOR MECHANIC 05/16/2018 10:39 AM FLOOR MECHANIC Mitch Mason P.A.-C. LAB BLOOD ADD- ON Performing Organization Address City/[facility] Co de Phone Number [facility] [address] [place], [place] [address] * (ABNORMAL) Hepatic Function Panel (06/07/2015 8:39 AM FLOOR MECHANIC) Only the most recent of2 resultswithin the time period is included. Alanine Amniotransferase, LD 78(H) 7 - 55 UNITL POWERCHART Albumin, S 4.6 3.2 - 5.2 GDL POWERCHART Alkaline Phosphatase, S 101 45 - 115 UNITL POWERCHART Aspartate Aminotransferase (AST), S 38 8 - 48 UNITL POWERCHART Bilirubin, Direct, S <0.20 <=0.30 MGDL POWERCHART Bilirubin, Total, S 0.4 0.1 - 1.0 MGDL POWERCHART Total Protein, S 7.4 6.3 - 7.9 GDL POWERCHART Blood 06/07/2015 8:39 AM FLOOR MECHANIC Mitch Mason P.A.-C. LAB BLOOD ADD- ON Performing Organization Address City/[facility] Co de Phone Number POWERCHART * Chronic Hepatitis Profile (06/07/2015 8:39 AM FLOOR MECHANIC) HBs Antigen, S Negative Negative POWERCHART HBs Antibody, S Negative POWERCHART Comment: Patient is presumed to be not immune to infection with HBV. REFERENCE VALUE Unvaccinated: Negative Vaccinated: Positive HX Hep Bs Ab [facility] <5.0 MIUML POWERCHART Comment: REFERENCE VALUE Unvaccinated: <5.0 Vaccinated: >=12.0 HBc Total Ab, S Negative Negative POWERCHART HXHCV Ab [facility] Negative Negative POWERCHART Comment: Iztjpm-hk-lmedfy ratio is <1.00. Test Performed by: [place] [address] [employer] Sales Representative: Hari Sheppard II, M.D., Ph.D. Blood 06/07/2015 8:39 AM FLOOR MECHANIC Mitch Mason P.A.-C. LAB MICROBIOLO GY - BLOOD ORDERABLES Performing Organization Address City/[facility] Co de Phone Number POWERCHART * (ABNORMAL) Uric Acid (12/07/2014 1:05 PM CDT) Uric Acid, S 10.3(H) 3.7 - 8.0 MGDL POWERCHART Blood 12/07/2014 1:05 PM CDT Mitch Mason P.A.-C. LAB BLOOD ADD- ON Performing Organization Address City/State/[facility] Co de Phone Number POWERCHART * US Abdomen Complete (04/03/2014 8:32 AM FLOOR MECHANIC) Anatomical Region Laterality Modality Abdomen N/A Ultrasound 04/03/2014 8:32 AM FLOOR MECHANIC Addenda Addendum by Zheng Duong M.D. on 04/03/2014 8:32 AM FLOOR MECHANIC RAD^^^OW US Abdomen Complete 04/03/2014 08:32:22 Addendum by Zheng Duong M.D. on 04/03/2014 8:30 AM FLOOR MECHANIC RAD^^^OW US Abdomen Complete 04/03/2014 08:30:00 Addendum by Zheng Duong M.D. on 04/03/2014 8:32 AM FLOOR MECHANIC RAD^^^MA US Abdomen Complete 04/03/2014 08:32:22 Addendum by Zheng Duong M.D. on 04/03/2014 8:30 AM FLOOR MECHANIC RAD^^^MA US Abdomen Complete 04/03/2014 08:30:00 Impressions 04/03/2014 10:35 AM FLOOR MECHANIC Diffuse hepatic steatosis with an apparent large 6 cm geographic area of fatty sparing in the posterior left lobe. If clinical concern for other liver disease remains high, multiphasic CT or MRI could be considered. Narrative 04/03/2014 10:35 AM FLOOR MECHANIC HISTORY: Abnormally elevated liver function tests. Technique: Transabdominal grayscale and Doppler ultrasound (US) imaging was performed. COMPARISON: None. FINDINGS: The liver is not enlarged but displays abnormally increased echogenicity throughout, (other than the posterior left lobe), without definite US evidence of a concerning focal lesion (allowing for poor acoustic penetration due to the diffuse fatty infiltration). No biliary dilatation is observed as the maximum diameter of the common bile duct is 3 mm. The gallbladder images normally without evidence of wall thickening, sludge, or gallstones. Negative Gamboa's. No ascites. The visualized portions of the pancreas are negative. The kidneys are normal in size with a right renal length of 13.2 cm and a left renal length of 12.9 cm. Cortical thickness / echogenicity appear to be preserved for age 48. There is no US evidence of a renal mass, calculus, or hydronephrosis. No limited Doppler abnormalities are identified. The abdominal aorta is not dilated. The IVC and main portal vein are patent with correct directionality. The spleen is normal in appearance and size, length of 11 cm. Procedure Note Alvin Johns M.D. / Zheng Duong M.D. - 08/19/2016 HISTORY: Abnormally elevated liver function tests. Technique: Transabdominal grayscale and Doppler ultrasound (US) imaging was performed. COMPARISON: None. FINDINGS: The liver is not enlarged but displays abnormally increased echogenicity throughout, (other than the posterior left lobe), without definite US evidence of a concerning focal lesion (allowing for poor acoustic penetration due to the diffuse fatty infiltration). No biliary dilatation is observed as the maximum diameter of the common bile duct is 3 mm. The gallbladder images normally without evidence of wall thickening, sludge, or gallstones. Negative Gamboa's. No ascites. The visualized portions of the pancreas are negative. The kidneys are normal in size with a right renal length of 13.2 cm and a left renal length of 12.9 cm. Cortical thickness / echogenicity appear to be preserved for age 48. There is no US evidence of a renal mass, calculus, or hydronephrosis. No limited Doppler abnormalities are identified. The abdominal aorta is not dilated. The IVC and main portal vein are patent with correct directionality. The spleen is normal in appearance and size, length of 11 cm. IMPRESSION: Diffuse hepatic steatosis with an apparent large 6 cm geographic area of fatty sparing in the posterior left lobe. If clinical concern for other liver disease remains high, multiphasic CT or MRI could be considered. Lloyd Coleman Jr., R.D.M.S. IMG US PROCEDURES * Thyroid Function Deuel (03/21/2014 9:49 AM FLOOR MECHANIC) TSH, Sensitive 2.4 0.3 - 5.0 MIUL POWERCHART Comment: Test Performed by: [place] [address] [employer] Sales Representative: Michael Rivers M.D. Blood 03/21/2014 9:49 AM FLOOR MECHANIC Mitch Mason P.A.-C. LAB BLOOD ADD- ON Performing Organization Address City/[facility] Co de Phone Number POWERCHART * PSA (Prostate-Specific Antigen) Screen (03/21/2014 9:49 AM FLOOR MECHANIC) Prostate-Specif ic Ag 1.13 0.00 - 2.50 NGML POWERCHART Blood 03/21/2014 9:49 AM FLOOR MECHANIC Mitch Mason P.A.-C. LAB BLOOD ADD- ON Performing Organization Address City/State/[facility] Co de Phone Number POWERCHART Visit Diagnoses Diagnosis Start Date Diabetes Mellitus Type 2 Without Complication (HCC) 01/19/2017 Diabetes Mellitus Type 2 Without Complication (HCC) 02/06/2017 Diabetes Mellitus Type 2 Without Complication (HCC) 05/16/2018 Diabetes Mellitus Type 2 Without Complication (HCC) 05/16/2018 Diabetes Mellitus Type 2 (HCC) 06/12/2018 ZZ Body Mass Index 40.0 To 44.9 Adult (HCC) 06/12/2018 Hypertension Essential Primary 06/12/2018 Abuse Alcohol 06/12/2018 Gastroesophageal Reflux Disease With Esophagitis 06/12/2018 Pain Shoulder Right 06/12/2018 General Medical Examination Adult 06/12/2018 Screening Cancer Colon 06/12/2018 Iron Deficiency Anemia Screening Exam 06/12/2018 Screening Examination Prostate Cancer 06/12/2018 Cerumen Impacted Bilateral 06/12/2018 Hypertension Essential Primary 06/26/2018 Abuse Alcohol 06/26/2018 General Medical Examination Adult 06/26/2018 Screening Cancer Colon 06/26/2018 Iron Deficiency Anemia Screening Exam 06/26/2018 Screening Examination Prostate Cancer 06/26/2018 Hypertension Essential Primary 06/26/2018 Diabetes Mellitus Type 2 (HCC) 11/27/2018 Hypertension Essential Primary 11/27/2018 Screening Cancer Colon 11/27/2018 Gastroesophageal Reflux Disease With Esophagitis 11/27/2018 Abuse Alcohol 11/27/2018 Screening Examination Prostate Cancer 11/27/2018 Pain Wrist Right 01/17/2019 Pain Wrist Right 01/17/2019 Preoperative Exam 01/17/2019 Screening Cancer Colon 01/17/2019 Pain Wrist Right 01/23/2019 Crushing Injury Right Wrist And Hand Initial 01/23/2019 Hypertension Essential Primary 02/05/2019 Preoperative Exam 02/05/2019 Screening Cancer Colon 02/05/2019 Diabetes Mellitus Type 2 (HCC) 02/05/2019 Hypertension Essential Primary 02/17/2019 Diabetes Mellitus Type 2 (HCC) 06/20/2019 Screening Examination Prostate Cancer 06/20/2019 Diabetes Mellitus Type 2 (HCC) 06/20/2019 Screening Examination Prostate Cancer 06/20/2019 ZZ Body Mass Index 40.0 To 44.9 Adult (HCC) 07/11/2019 Hypertension Essential Primary 07/11/2019 Diabetes Mellitus Type 2 Without Complication (HCC) 07/11/2019 Gastroesophageal Reflux Disease With Esophagitis 07/11/2019 Monitoring For Therapeutic Drug Therapy 04/12/2020 Diabetes Mellitus Type 2 Without Complication (HCC) 04/12/2020 Diabetes Mellitus Type 2 Without Complication (HCC) 07/28/2020 ZZ Body Mass Index 40.0 To 44.9 Adult (HCC) 07/28/2020 Hypertension Essential Primary 07/28/2020 Gastro-Esophageal Reflux Disease With Esophagitis Without Bleeding 07/28/2020 Screening Examination Prostate Cancer 07/28/2020 Pain Back 07/28/2020 Pain Back 08/11/2020 Pain Low Back Unspecified 08/11/2020 Radiculopathy Lumbar 08/11/2020 Spondylosis Lumbar Without Myelopathy 08/11/2020 Pain Low Back Unspecified 08/12/2020 Radiculopathy Lumbosacral 08/18/2020 Pain Low Back Unspecified 08/18/2020 Lumbar Disc Disorder 08/18/2020 Spondylosis Lumbar Without Myelopathy 08/18/2020 Radiculopathy Lumbosacral 09/15/2020 Pain Low Back Unspecified 09/15/2020 Lumbar Disc Disorder 09/15/2020 Spondylosis Lumbar Without Myelopathy 09/15/2020 ZZ Body Mass Index 40.0 To 44.9 Adult (HCC) 11/25/2020 Diabetes Mellitus Type 2 Without Complication (HCC) 11/25/2020 Hypertension Essential Primary 11/25/2020 Diabetes Mellitus Type 2 Without Complication (HCC) 07/12/2021 Monitoring For Therapeutic Drug Therapy 07/12/2021 Diabetes Mellitus Type 2 Without Complication (HCC) 2021 Screening Examination Prostate Cancer 08/17/2021 Diabetes Mellitus Type 2 Without Complication (HCC) 08/17/2021 Screening Examination Prostate Cancer 08/23/2021 Diabetes Mellitus Type 2 Without Complication (HCC) 08/23/2021 Screening Examination Prostate Cancer 08/23/2021 Diabetes Mellitus Type 2 Without Complication (HCC) 08/23/2021 ZZ Body Mass Index 40.0 To 44.9 Adult (HCC) 08/24/2021 Diabetes Mellitus Type 2 Without Complication (HCC) 08/24/2021 Hypertension Essential Primary 08/24/2021 Gastro-Esophageal Reflux Disease With Esophagitis Without Bleeding 08/24/2021 Screening Examination Prostate Cancer 08/24/2021 Screening Test Laboratory 08/31/2022 Diabetes Mellitus Type 2 Without Complication (HCC) 08/31/2022 Hypertension Essential Primary 08/31/2022 Diabetes Mellitus Type 2 Without Complication (HCC) 12/22/2022 Screening Examination Prostate Cancer 12/22/2022 Diabetes Mellitus Type 2 Without Complication (HCC) 12/22/2022 Screening Examination Prostate Cancer 12/22/2022 Diabetes Mellitus Type 2 Without Complication (HCC) 12/22/2022 Screening Examination Prostate Cancer 12/22/2022 Diabetes Mellitus Type 2 Without Complication (HCC) 01/05/2023 Hematuria 01/05/2023 ZZ Body Mass Index 40.0 To 44.9 Adult (HCC) 01/05/2023 Diabetes Mellitus Type 2 Without Complication (HCC) 01/05/2023 Hypertension Essential Primary 01/05/2023 Gastro-Esophageal Reflux Disease With Esophagitis Without Bleeding 01/05/2023 Abuse Alcohol 01/05/2023 Hematuria 01/05/2023 Gout 03/13/2023 Pain Chest Atypical 04/20/2023 Pain Chest Atypical 04/20/2023 ZZ Body Mass Index 40.0 To 44.9 Adult (HCC) 04/20/2023 Diabetes Mellitus Type 2 Without Complication (HCC) 04/20/2023 Tendinitis Achilles Right 04/20/2023 Pain Chest Atypical 04/20/2023 Diabetes Mellitus Type 2 Without Complication (HCC) 04/20/2023 Hematuria 04/20/2023 Diabetes Mellitus Type 2 Without Complication (HCC) 10/16/2023 Care Teams Customer Service Technician Relationship Specialty Start Date End Date Mitch Mason P.A.-C. [address] [place] [phone] PCP - General Family Medicine 12/22/22
--- OUTSIDE RECORDS SUMMARY | 2023-11-20 07:11 | XMS_ITS | Encounter Summary ---
Author Organization [facility] Address [address] [place] [address] Care Team Providers Care On Line Csr Name Role Phone Mitch Mason P.A.-C. Primary Care Provider Encounter Details Date Type Department Care Team (Late st Contact Info) Description 10/16/2023 Orders Only [facility]NT Mitch Mason, P.A.-C. [address] [facility] [place] [phone] Diabetes Mellitus Type 2 Without Complication (HCC) Social History Tobacco Use Types Packs/Day Years Used Date Smoking Tobacco: Former Cigarettes Q uit: 04/09/1996 Smokeless Tobacco: Never Alcohol Use Standard Drinks/Week Comments Yes 1 (1 standard drink = 0.6 oz pur e alcohol) Social Connection and Isolat ion Panel [NHANES] Answer Date Recorded Frequency of Communication w ith Friends and Family More than three times a week 01/23/2019 Frequency of Social Gatherin gs with Friends and Family Once a week 01/23/2019 Attends Nondenominational Services Never 01/23 Active Member of Clubs [...] Answer Date Recorded PHQ-2 Score 0 08/24/2021 [facility] of Occupat ional Health - Occupational Stress [...] on file Sexual Orientation Not on file documented as of this encounter Plan of Treatment Scheduled Orders Name Type Priority Associated Diagnoses Orde r Schedule Albumin, Random, Urine Lab Routine Diabetes Mellitus Type 2 Without Complication (HCC) Expected: 10/30/2023, Expires: 04/13/2024 documented as of this encounter Visit Diagnoses Diagnosis Diabetes Mellitus Type 2 Without Complication (HCC) documented in this encounter Care Teams On Line Csr Relationship Specialty Start Date End Date Mitch Mason P.A.-C. [address] [place] [phone] PCP - General Family Medicine 12/22/22 documented as of this encounter
--- OUTSIDE RECORDS SUMMARY | 2023-11-20 07:11 | XMS_ITS | Referral Summary ---
Author Organization [facility] Address [address] [place] [address] Care Team Providers Care Informatics Analyst Name Role Phone Mitch Mason.A.-C. Primary Care Provider Source Comments Patient records contain information from all sites at [facility]. For routine questions regarding patient records, call [phone] during business hours, M-F 8:00 AM - 5:00 PM Central Time. Record requests for emergency care only can be directed to [phone] at any time.[facility] Encounters Date Type Department Care Team Description 10/16/2023 Orders Only [facility] PCP TH AZT Mitch Mason, P.A.-C. Diabetes Mellitus Type 2 Without Complication (HCC) 08/24/2023 Refill Department of Family Medicine, [facility], in [place], [place] [address] [place] [phone] Mitch Mason, P.A.-C. Med Refill from Last 3 Months Allergies No known active allergies Medications Medication [...] BMI 40-44 posted on 06/14 at 08:19 CALCIMINER. Diabetes Mellitus Type 2 Without Complication Overview [...] TS(Discontinued)(12 years or older) 08/24/2021 Tdap 06/21/2015 Social History Tobacco Use Types Packs/Day Years Used Date Smoking Tobacco: Former Cigarettes Q uit: 04/09/1996 Smokeless Tobacco: Never Tobacco Cessation:Counseling Given: Not Answered Alcohol Use Standard Drinks/Week Comments Yes 1 (1 standard drink = 0.6 oz pur e alcohol) Social Connection and Isolat ion Panel [NHANES] Answer Date Recorded Frequency of Communication w ith Friends and Family More than three times a week 01/23/2019 Frequency of Social Gatherin gs with Friends and Family Once a week 01/23/2019 Attends Congregation Services Never 01/23 Active Member of Clubs [...] Answer Date Recorded PHQ-2 Score 0 08/24/2021 [facility] of Occupat ional Health - Occupational Stress [...] Comments Blood Pressure 124/82 04/20/2023 10:18 AM CALCIMINER av erage Pulse 78 04/20/2023 10:18 AM CALCIMINER Temperature 36 ??C (96.8 ??F) 04/20/2023 10:18 AM CALCIMINER Respiratory Rate 16 04/20/2023 10:18 AM CALCIMINER Oxygen Saturation 97% 02/05/2019 3:27 PM CDT Inhaled Oxygen Concentration - - Weight 143 kg (314 lb 13.1 oz) 04/20/2023 10:18 AM CALCIMINER Height 184 cm (6' 0.44) 04/20/2023 10:18 AM CALCIMINER Body Mass Index 42.18 04/20/2023 10:18 AM CALCIMINER Plan of Treatment Not on file Procedures Procedure Name Priority Date/Time Associated Diagnosis Comments HEMOGLOBIN A1C, B Routine 04/20/2023 10: 05 AM CALCIMINER Diabetes Mellitus Type 2 Without Complication (HCC) Hematuria LIPID PANEL, S Routine 12/22/2022 11:08 AM CDT Diabetes Mellitus Type 2 Without Complication (HCC) Screening Examination Prostate Cancer COMPREHENSIVE METABOLIC PANEL, S/P Routine 12/22/2022 11:08 AM CDT Diabetes Mellitus Type 2 Without Complication (HCC) Screening Examination Prostate Cancer ALBUMIN, RANDOM, U Routine 12/22/2022 11 :05 AM CDT Diabetes Mellitus Type 2 Without Complication (HCC) Screening Examination Prostate Cancer CHRONIC VIRAL HEPATITIS PROFILE Routine 06/07/2015 8:39 AM CALCIMINER from Last 3 Months or Most Recently Relevant to Health Maintenance Results * (ABNORMAL) Hemoglobin A1c (04/20/2023 10:05 AM CALCIMINER) Hemoglobin A1c, B 8.1(H) 4.2 - 5.6 % 04/20/2023 12:13 PM CALCIMINER OWAT Comment: Hemoglobin A1c values greater than or equal to 6.5 percent are diagnostic for diabetes mellitus. ??Diagnosis should be confirmed by repeat testing. ??In diabetic patients, HbA1c goals should be discussed with healthcare provider. Blood (Blood, Venous) 04/20/2023 10:05 AM CALCIMINER 04/20/2023 11:06 AM CALCIMINER Mitch Mason P.A.-C. LAB BLOOD ADD- ON [facility] [address] [place] [address], [facility] in [place] [address], [place] [address] * (ABNORMAL) Lipid Panel (12/22/2022 11:08 AM CDT) Triglycerides 320(H) mg/dL 12/22/2022 2:43 PM CDT [...] Mitch Mason P.A.-C. LAB BLOOD ADD- ON [facility] [address] [place] [address], [facility] in [place] [address] [place] [address] * (ABNORMAL) Comprehensive Metabolic Panel (12/22/2022 11:08 AM CDT) Potassium, P 4.1 3.6 - 5.2 mmol/L [...] Mitch Mason P.A.-C. LAB BLOOD ADD- ON [facility] [address] [place] [address], [place] OW[place] [facility] in [place] [address] [place] [address] * Albumin, Random, Urine (12/22/2022 11:05 AM CDT) Microalbumin <12.0 mg/L 12/22/2022 2:35 PM CDT [...] Mitch Mason P.A.-C. LAB URINE VLADISLAV FREIRE [facility] Organization Address City/State/ZIP Co de Phone Number [facility] [address] [place] [address], [facility] in [place] [address] [place] [address] * Chronic Hepatitis Profile (06/07/2015 8:39 AM CALCIMINER) HBs Antigen, S Negative Negative POWERCHART HBs Antibody, S Negative POWERCHART Comment: Patient is presumed to be not immune to infection with HBV. REFERENCE VALUE Unvaccinated: Negative Vaccinated: Positive HX Hep Bs Ab [facility] <5.0 MIUML POWERCHART Comment: REFERENCE VALUE Unvaccinated: <5.0 Vaccinated: >=12.0 HBc Total Ab, S Negative Negative POWERCHART HXHCV Ab [facility] Negative Negative POWERCHART Comment: Xxuvlo-nv-ditsed ratio is <1.00. Test Performed by: [facility] - [address] [address] Chair Post Machine Operator: Hari Sheppard II, M.D., Ph.D. Blood 06/07/2015 8:39 AM CALCIMINER Mitch Mason P.A.-C. LAB MICROBIOLO GY - BLOOD ORDERABLES POWERCHART from Last 3 Months or Most Recently Relevant to Health Maintenance Care Teams Informatics Analyst Relationship Specialty Start Date End Date Mitch Mason P.A.-C. [address] [place] [phone] PCP - General Family Medicine 12/22/22
--- OUTSIDE RECORDS SUMMARY | 2023-11-20 07:11 | XMS_ITS | Encounter Summary ---
Author Organization [facility] Address [address] [place] [address] Care Team Providers Care White Kid Buffer Name Role Phone Mitch Mason P.A.-C. Primary Care Provider Reason for Visit * Reason Comments Med Refill Encounter Details Date Type Department Care Team (Late st Contact Info) Description 08/24/2023 Refill Department of Family Medicine, [facility], in [place], [place] [address] [place] [address] Mitch Mason, PTiffanyATiffany-C. [address] [place] [phone] Med Refill Social History Tobacco Use Types Packs/Day Years [...] and Family Once a week 01/23/2019 Attends [employer] Services Never 01/23 Active Member of Clubs [...] Answer Date Recorded PHQ-2 Score 0 08/24/2021 [facility] of Occupat ional Health - Occupational Stress [...] as of this encounter Plan of Treatment Not on file documented as of this encounter Visit Diagnoses Not on filedocumented in this encounter Care Teams White Kid Buffer Relationship Specialty Start Date End Date Mitch Mason, Gurmeet. [address] [place] [address] [place] [phone] PCP - General Family Medicine 12/22/22 documented as of this encounter
--- OUTSIDE RECORDS SUMMARY | 2023-11-20 07:11 | XMS_ITS | Encounter Summary ---
Author Organization [facility] Address [address] [place] [address] Care Team Providers Care Senior Systems Software Engineer Name Role Phone Mitch Mason P.A.-C. Primary Care Provider Encounter Details Date Type Department Care Team (Late st Contact Info) Description 05/15/2014 Historical Ophthalmology [facility] Oh Rashid Jr., M.D. [address] [place] [phone] Social History Tobacco Use Types Packs/Day Years Used Date Smoking Tobacco: Never Assessed Sex and Gender Information Value Date Recorded Sex Assigned at Not on file Gender Identity Not on file Sexual Orientation Not on file documented as of this encounter Progress Notes * Oh Rashid M.D. - 05/15/2014 8:32 AM CST Eye General CHIEF COMPLAINT Complete Exam - New pt HISTORY OF PRESENT ILLNESS New pt here to [facility] care. Is a new diabetic and here for a dilated exam. His glasses are about 2 years old, but it not having any problems with them. ROS good general health- heart and lungs WNL IMPRESSION / REPORT / PLAN A) DM, refractive error P) New MR, rto 1 year CDM Reports - EYEGEN Id: [id number] Status: Fnl documented in this encounter Plan of Treatment Not on file documented as of this encounter Visit Diagnoses Not on filedocumented in this encounter Care Teams Senior Systems Software Engineer Relationship Specialty Start Date End Date Mitch Mason P.A.-C. [address] [phone] PCP - General Family Medicine 12/22/22 documented as of this encounter
--- OUTSIDE RECORDS SUMMARY | 2023-11-20 07:11 | XMS_ITS | Encounter Summary ---
Author Organization [facility] Address [address] [place] [address] Care Team Providers Care Spanish Literature Professor Name Role Phone Mitch Mason P.A.-C. Primary Care Provider Reason for Visit * Reason Onset Date Comments Quality 08/06/2023 D5 Encounter Details Date Type Department Care Team (Late st Contact Info) Description 08/06/2023 Clinical Communication Department of Family Medicine, [facility], in [place], [place] [address] [place] [address] Mitch Mason PBrandon-CTiffany [address] [place] [address] Quality (D5) Social History Tobacco Use Types Packs/Day Years [...] and Family Once a week 01/23/2019 Attends [employer] Services Never 01/23 Active Member of Clubs [...] Answer Date Recorded PHQ-2 Score 0 08/24/2021 [facility] of Occupat ional Health - Occupational [...] on file documented as of this encounter Miscellaneous Notes * Telephone Encounter - Tsering Meyers R.N. - 08/06/2023 11:49 AM CDT Left message for patient to return call to clinic. Does the patient need to speak to nursing? no Action needed: Patient is due for labs and diabetic follow up appointment with PCP. Please assist in scheduling - labs should be done a few days before appt w/ PCP. documented in this encounter Plan of Treatment Not on file documented as of this encounter Visit Diagnoses Not on filedocumented in this encounter Care Teams Spanish Literature Professor Relationship Specialty Start Date End Date Mitch Mason P.A.-C. NPI: [id number] [place] [address] [place] [phone] PCP - General Family Medicine 12/22/22 documented as of this encounter
--- OUTSIDE RECORDS SUMMARY | 2023-11-20 07:11 | XMS_ITS | Clinical Summary ---
Author Organization [facility] Address [place], [place] [address] Care Team Providers Care Chief Service Dispatcher Name Role Phone Pcp, No Primary Care Provider Unavailabl e Allergies No known active allergies Medications Medication Sig Dispensed Refills Start Date End Date Status atenolol (TENORMIN) 50 mg tablet Take 50 mg by mouth once daily. Active aspirin (ECOTRIN) 81 mg enteric coated tablet Take 1 Tab by mouth once daily. 12/07/2014 Active metFORMIN (GLUCOPHAGE XR) 500 mg Extended-Release tablet Take 4 tablets by mouth once daily with a meal. 3 11/22/2018 Active simvastatin (ZOCOR) 20 mg tablet Take 20 mg by mouth once daily. 06/12/2018 Active glimepiride (AMARYL) 4 mg tablet Take 4 mg by mouth once daily with a meal. 07/23/2020 Active losartan (COZAAR) 100 mg tablet Take 100 mg by mouth once daily. 07/23/2020 Active hydroCHLOROthiazide (HCTZ) 25 mg tablet Take 25 mg by mouth once daily. 07/23/2020 Active famotidine (PEPCID) 40 mg tablet Take 40 mg by mouth once daily. 07/23/2020 Active Accu-Chek Guide test strips strip USE TO TEST ONCE DAILY 07/23/2021 Active losartan-hydrochlor othiazide (HYZAAR) 100-25 mg tablet Take 1 Tablet by mouth once daily. 08/24/2021 Active gabapentin (NEURONTIN) 600 mg tabletIndications:L umbosacral radiculopathy at S1 Take 1 Tablet (600 mg) by mouth three times daily. 90 Tablet 5 11/22/2022 Active tiZANidine (ZANAFLEX) 4 mg tabletIndications:L umbosacral radiculopathy at S1 Take 1 Tablet (4 mg) by mouth every 6 hours if needed for Muscle Spasm. 36 Tablet 2 11/22/2022 Active ibuprofen (ADVIL; MOTRIN) 600 mg tabletIndications:I ntractable right heel pain Take 1 Tablet (600 mg) by mouth every 6 hours if needed for Pain. Maximum of 3200 mg in 24 hours. 30 Tablet 02/05/2023 Active oxyCODONE-acetamino phen (PERCOCET) 5-325 mg per tabletIndications:R ight foot pain Take 1 Tablet by mouth every 6 hours if needed for Pain. Max acetaminophen dose: 4000mg in 24 hrs. 10 Tablet 03/12/2023 Active naproxen (NAPROSYN) 375 mg tabletIndications:R ight foot pain Take 1 Tablet (375 mg) by mouth every 12 hours if needed for Pain. 20 Tablet 03/12/2023 Active meloxicam 15 mg tabletIndications:L umbosacral radiculopathy at S1 Take 1 Tablet (15 mg) by mouth once daily. 30 Tablet 2 08/24/2023 Active CaneIndications:Lum bosacral radiculopathy at S1 Single Point Cane for home use. For 99 weeks. WC DME 1 Each 08/24/2023 Active LORazepam (ATIVAN) 1 mg tabletIndications:L umbosacral radiculopathy at S1 Take 1 Tablet (1 mg) by mouth one time for 1 dose. 1 hour before procedure 1 Tablet 11/15/2023 Active Active Problems Problem Noted Date Diagnosed Date Impingement syndrome of right shoulder 2 Degenerative joint disease of right acromioclavi cular joint 11/21/2021 Adhesive capsulitis of right shoulder 09/28/2021 Diabetes mellitus 09/28/2021 Gastroesophageal reflux disease with esophagitis 06/12/2018 Body mass index (BMI) 40.0-44.9, adult 7 Overview: Body mass index (BMI) 40.0-44.9, adult Rule activated problem due to BMI 40-44 posted on 06/14 at 08:19 RUFFLING MACHINE OPERATOR. Type 2 diabetes mellitus without complication Overview: Diabetes Mellitus Type 2 Primary hypertension 03/18/2014 Overview: Hypertension (HTN) NOS Resolved Problems Problem Noted Date Diagnosed Date Resolved Date Rotator cuff impingement syn drome of right shoulder 09/28/2021 11/21/2021 Encounters Date Type Department Care Team Description 11/15/2023 8:40 AM CDT Office Visit [facility] [address] [facility] [place] [address] David Villarreal MD Occ Med (Work comp follow up back injury, DOI: 06/28/20) 11/15/2023 Telephone [facility] [address] [facility] [place] [address] David Villarreal MD Questions 11/15/2023 Telephone [facility] [address] [place] [address] David Villarreal MD Questions (FOLLOW UP) 11/15/2023 Travel 11/07/2023 Telephone [facility] [address] [facility] [place] [address] David Villarreal MD ORDER (EPIDURAL) 10/25/2023 10:20 AM CDT Office Visit [facility] [address] [facility] [place] [address] David Villarreal MD Occ Med (Work comp follow up back injury, DOI: 06/28/20) 10/25/2023 Travel 09/20/2023 Telephone [facility] [address] [place] [address] David Villarreal MD Results (MRI) 09/18/2023 8:45 AM CDT - 09/18/2023 11:59 PM CDT Hospital Encounter [facility] [address] [place] [address] David Villarreal MD Lumbar disc herniation; Lumbosacral radiculopathy at S1 09/18/2023 Travel 09/06/2023 Telephone [facility] [address] [facility] [address] David Villarreal MD Questions (MRI / pain / earlier appointment ) 08/24/2023 7:40 AM CDT Office Visit [facility] [address] [facility] [address] David Villarreal MD Occ Med (Follow up back pain) 08/24/2023 Travel from Last 3 Months Immunizations Name Administration Dates Next Due COVID-19 vaccine ([employer] 30mcg/0.3mL) P FJUNIOR 09/01/2020,08/11/2020 Family History Medical History Relation Name Comments Cancer Father Hypertension Father Hypertension Mother Relation Name Status Comments Father Mother Social History Tobacco Use Types Packs/Day Years Used Date Smoking Tobacco: Former Smokeless Tobacco: Never Tobacco Cessation:Counseling Given: Yes Alcohol Use Standard Drinks/Week Comments Not Currently 0 (1 standard drink = 0.6 oz pur e alcohol) Social Connections Answer Date Recorded Frequency of Communication with Friends and Fami ly Not on file 04/08/2021 Financial Resource Strain Answer Date R ecorded Difficulty of Paying Living Expenses Not on file 04/08/2021 Difficulty of Paying Living Expenses Not on file 04/08/2021 Sex and Gender Information Value Date Recorded Sex Assigned at Not on file Gender Identity Not on file Sexual Orientation Not on file Obstetrics History Last Filed Vital Signs Vital Sign Reading Time Taken Comments Blood Pressure 158/100 11/15/2023 8:49 AM CDT Pulse 80 11/15/2023 8:49 AM CDT Temperature 36.6 ??C (97.8 ??F) 11/15/2023 8:49 AM CD T Respiratory Rate 16 03/12/2023 5:57 AM RUFFLING MACHINE OPERATOR Oxygen Saturation 95% 11/15/2023 8:49 AM CDT Inhaled Oxygen Concentration - - Weight 139.6 kg (307 lb 12.8 oz) 11/15/2023 8:49 AM CDT shoes on Height 182.9 cm (6') 03/12/2023 5:57 AM RUFFLING MACHINE OPERATOR Body Mass Index 41.75 03/12/2023 5:57 AM RUFFLING MACHINE OPERATOR Plan of Treatment Upcoming Encounters Date Type Department Care Team (Late st Contact Info) Description 11/20/2023 7:20 AM CDT Office Visit [facility] [address] [facility] [place] [address] David Villarreal MD [address] [place] [address] 02/14/2024 8:00 AM RUFFLING MACHINE OPERATOR Office Visit [facility] [address] [place] [address] David Villarreal MD [address] [place] [address] Health Maintenance Due Date Last Done Comments Pneumococcal series for age 6-64 (1 of 2 - PCV) 08/15/1973 Tdap 08/15/1978 Depression screening for age 12+ 1979 HIV for age 15-65 08/15/1982 Hepatitis C screening for ag e 18-79 08/15/1985 Hepatitis B series for Diabe masha (1 of 3 - 19+ 3-dose series) 08/15/1986 Tetanus booster 1987 Zoster (shingles) series for age 50+ (1 of 2) 08/15/2017 Lipids for age 45-75 12/02/2018 12/02/2013 COVID-19 vaccine series (2022- season) 2022 08/24/2021, 09/01/2020, 08/11/2020 BMI (ht and wt on same day) for age 18+ 08/24/2023 08/23/2022, 05/16/2022, 04/19/2022, Additional history exists Influenza for age 50-64 12/09/2023 Colonoscopy through age 75 02/19/2029 02/19/2019 Procedures Procedure Name Priority Date/Time Associated Diagnosis Comments MR SPINE LUMBAR WO Routine 09/18/2023 9: 27 AM CDT Lumbar disc herniation Lumbosacral radiculopathy at S1 COLONOSCOPY 02/19/2019 10:00 AM RUFFLING MACHINE OPERATOR LIPID PANEL Today 12/02/2013 11:20 AM CDT Laboratory examination, unspecified from Last 3 Months or Most Recently Relevant to Health Maintenance Results * MR SPINE LUMBAR WO (09/18/2023 9:27 AM CDT) Anatomical Region Laterality Modality Spine, LUMBAR SPINE Magnetic Res onance 09/18/2023 11:5 0 AM CDT Impressions 09/18/2023 11:50 AM CDT 1. Normal alignment. No fractures. 2. Lumbar spondylosis. 3. At L5-S1, disc degeneration posterior disc herniation. Tiny annular fissure along the right paracentral zone. Otherwise, no narrowing of spinal canal. Mild narrowing of the bilateral neural foramina 4. No spinal canal or neural foraminal narrowing at the remaining levels Dictated by Gerard Carter MD @ 09/18/2023 11:50:09 AM (Electronically Signed) Narrative 09/18/2023 11:50 AM CDT For Patients: ??As a result of the Cures Act, medical imaging exams and procedure reports are released immediately into your electronic medical record. ??You may view this report before your referring provider. ??If you have questions, please contact your health care provider. INDICATION: Lumbar disc herniation. Low back pain. COMPARISON: None. TECHNIQUE: Sagittal T1, T2, and STIR sequences. Axial T1 and T2 weighted sequences. FINDINGS: Normal vertebral body alignment. No fractures. No vertebral body loss of height. No ligamentous injury. No suspicious osseous lesions. Normal conus terminates at L1. T12-L1 L1-2 L2-3: No spinal canal neural foraminal narrowing. L3-4: No spinal canal or neural foraminal narrowing. L4-5: Annular bulge. No narrowing of spinal canal. No neural foraminal narrowing. Mild facet arthropathy. L5-S1: Disc degeneration. Posterior disc herniation. Tiny annular fissure along the right paracentral zone. No narrowing of the spinal canal. No impingement of the traversing S1 nerve roots. Mild narrowing of bilateral foramina. Moderate facet arthropathy. Normal visualized SI joints. Normal paraspinal soft tissues. Procedure Note Gerard Carter MD, PhD - 09/18/2023 For Patients: As a result of the Century Cures Act, medical imagingexams and procedure reports are released immediately into your electronicmedical record. You may view this report before your referring provider.If you have questions, please contact your health care provider. INDICATION: Lumbar disc herniation. Low back pain. COMPARISON: None. TECHNIQUE: Sagittal T1, T2, and STIR sequences. Axial T1 and T2 weighted sequences. FINDINGS: Normal vertebral body alignment. No fractures. No vertebral body loss ofheight. No ligamentous injury. No suspicious osseous lesions. Normal conusterminates at L1. T12-L1 L1-2 L2-3: No spinal canal neural foraminal narrowing. L3-4: No spinal canal or neural foraminal narrowing. L4-5: Annular bulge. No narrowing of spinal canal. No neural foraminalnarrowing. Mild facet arthropathy. L5-S1: Disc degeneration. Posterior disc herniation. Tiny annular fissurealong the right paracentral zone. No narrowing of the spinal canal. Noimpingement of the traversing S1 nerve roots. Mild narrowing of bilateralforamina. Moderate facet arthropathy. Normal visualized SI joints. Normal paraspinal soft tissues. IMPRESSION: 1. Normal alignment. No fractures. 2. Lumbar spondylosis. 3. At L5-S1, disc degeneration posterior disc herniation. Tiny annularfissure along the right paracentral zone. Otherwise, no narrowing ofspinal canal. Mild narrowing of the bilateral neural foramina 4. No spinal canal or neural foraminal narrowing at the remaining levels Dictated by Gerard Carter MD @ 09/18/2023 11:50:09 AM (Electronically Signed) David Villarreal MD MR * COLONOSCOPY (02/19/2019 10:00 AM RUFFLING MACHINE OPERATOR) 02/19/2019 10:0 0 AM RUFFLING MACHINE OPERATOR Narrative Transcriptions FromKishore riddle MD - 02/19/2019 10:53 AM CST Patient Name: Felix Posada Procedure Date: 02/19/2019 Gender: Male Date of : 1965 Admit Type: Ambulatory Procedure: Colonoscopy Proceduralist: Ronak Guadarrama [facility] Indications/Pre-Op Diagnosis: Screening for colorectal malignantneoplasm Medications: Propofol per Anesthesia Procedure Description: The patient had risks, benefits and alternatives explained to andgave informed consent. The patient had a stable cardiopulmonary status and judged an adequate candidate for conscious sedation. The colonoscope was passed through the anus and advanced to thececum, identified by appendiceal orifice and ileocecal valve. Thecolonoscopy was performed with ease. The patient tolerated the procedure well.The quality of the bowel preparation was evaluated using the BBPS ([place] Bowel Preparation Scale) with scores of: Right Colon = 3, Transverse Colon = 3 and Left Colon = 3 (entire mucosa seen well with noresidual staining, small fragments of stool or opaque liquid). The total BBPS score equals 9. Complications: No immediate complications. Estimated Blood Loss & Specimen: Estimated blood loss was minimal. Specimen collected - Yes and sent to Laboratory Findings: The perianal and digital rectal examinations were normal. Pertinent negatives include normal sphincter tone. The terminal ileum appeared normal. A 5 mm polyp was found in the transverse colon. The polyp wassessile. The polyp was removed with a cold snare. Resection and retrieval were complete. The exam was otherwise without abnormality. No additional abnormalities were found on retroflexion. Impressions/Post-Op Diagnosis: - The examined portion of the ileum was normal. - One 5 mm polyp in the transverse colon, removed with a cold snare. Resected and retrieved. - The examination was otherwise normal. Recommendation: - Await pathology results. - Dr. Guadarrama's office will contact you with biopsy/pathology results when available. Moderate Sedation: Deep sedation per anesthesia. Ronak Thierry, 02/19/2019 10:53:34 AM This report has been signed electronically. Note Initiated On: 02/19/2019 10:00 AM Kishore Guadarrama MD PROCEDURE ORD * (ABNORMAL) LIPID PANEL (12/02/2013 11:20 AM CDT) CHOLESTEROL,TOTAL 240(H) 100 - 200 mg/dL 12/02/2013 2:37 PM CDT [facility] TRIGLYCERIDES 246(H) 46 - 200 mg/dL 12/02/2013 2:37 PM CDT [facility] HDL CHOLESTEROL 38(L) >=40 mg/dL 12/02/2013 2:37 PM CDT [facility] CHOL/HDL RATIO 6.32(H) <5.00 12/02/2013 2:37 PM CDT [facility] PATIENT STATUS FASTING 12/02/2013 2:37 PM CDT [facility] LDL CHOLESTEROL KAREL 152.8 U/L 12/02/2013 2:37 PM CDT [facility] Blood specimen (specimen) BLOOD SPECIMEN / Unknown Venipuncture / Unknown 12/02/2013 11:20 AM CDT 12/02/2013 11:26 AM CDT Hyun Henriquez RN, GRADES 6 THROUGH 8 TEACHER CHEMISTRY Performing Organization Address City/State/[facility] Co de Phone Number [facility] [address] [place] [address] from Last 3 Months or Most Recently Relevant to Health Maintenance [address] [place] [address] Felix Posada Personal/Family Self 1965 [address] [place] [address] Felix Posada Personal/Family Self 1965 [address] [place] [address] [employer] [facility] [employer] Employer [address]/09/[address] [place] [address] [employer] [facility] [employer] Employer [phone] [place] [address] [employer] Contract Other 04/09/1967 [address] [place] [address] [employer] [facility] [employer] Employer 04/09/[address] [place] [address] [employer] [facility] Employer 04/09/[address] [place] [address] Advance Directives * Full Code (Latest Code Status on File) Date Activated Date Inactivated Comments 02/19/2019 10:05 AM 02/19/2019 1:50 PM Care Teams Chief Service Dispatcher Relationship Specialty Start Date End Date Pcp, No . PCP - General 11/03/22
--- OUTSIDE RECORDS SUMMARY | 2023-11-20 07:11 | XMS_ITS | Encounter Summary ---
Author Organization [facility] Address [address] [place] [address] Care Team Providers Care Cross Tie Turner Name Role Phone Mitch Mason P.A.-C. Primary Care Provider Encounter Details Date Type Department Care Team (Late st Contact Info) Description 04/17/2016 Historical Ophthalmology [facility] Oh Rashid Jr., M.D. [address] [place] [phone] Social History Tobacco Use Types Packs/Day Years Used Date Smoking Tobacco: Former Sex and Gender Information Value Date Recorded Sex Assigned at Not on file Gender Identity Not on file Sexual Orientation Not on file documented as of this encounter Progress Notes * Oh Rashid M.D. - 04/17/2016 3:27 PM CST Eye General CHIEF COMPLAINT Complete Exam IMPRESSION / REPORT / PLAN #1 Diabetes type 2 Stable, no retinopathy or macular edema #2 Refractive error No change RTo 1 year DIAGNOSIS #1 Diabetes type 2 #2 Refractive error CDM Reports - EYEGEN Id: [id number] Status: Fnl documented in this encounter Plan of Treatment Not on file documented as of this encounter Visit Diagnoses Not on filedocumented in this encounter Care Teams Cross Tie Turner Relationship Specialty Start Date End Date Mitch Mason P.A.-C. [address] [facility] [place] [phone] PCP - General Family Medicine 12/22/22 documented as of this encounter
--- OUTSIDE RECORDS SUMMARY | 2023-11-20 07:11 | XMS_ITS ---
Author Organization [facility] Address [address] [place] [address] Care Team Providers Care Field Human Resources Manager Name Role Phone Unavailable Unavailable Unavailable Surgery Details Not on file Complications Check Surgery Details section. Procedure Estimated Blood Loss Check Surgery Details section. Procedure Findings Check Surgery Details section. Procedure Specimens Taken Check Surgery Details section.
== END 2023-11-20 07:04 | disposition home or self-care (01) ==
LOC: INJ CL 07:08
PROVIDERS: PCP Physician Assistant; Visit Provider Family Medicine
DX: M54.16 Radiculopathy, lumbar region (principal)
CPT/HCPCS: 64483; J1100; Q9966

== ENCOUNTER 2024-07-08 10:12 | Outpatient (CLI) | payer OTHER, SELFPAY | END 2024-07-08 10:13 | disposition home or self-care (01) | LOC: INJ CL 10:13 | PROVIDERS: PCP Physician Assistant; Visit Provider Family Medicine | DX: M51.26 Other intervertebral disc displacement, lumbar region (principal); M51.369 Other intervertebral disc degeneration, lumbar region without mention of lumbar back pain or lower extremity pain | CPT/HCPCS: 64483; J1100; Q9966 ==